=== PATIENT | female | born 1965 | race Caucasian/White ===

== ENCOUNTER 2019-07-31 09:47 | Outpatient (CLI) | payer BC, SELFPAY ==
--- NOTE | ~2019-07-31 | CT_ITS ---
EXAMINATION: CT lung screening EXAM DATE: 07/31/2019 10:14 INDICATION: Personal history of nicotine dependence. TECHNIQUE: Spiral low dose CT of the chest without contrast. Axial, coronal and sagittal images were reviewed. The dose-length product (DLP) for this examination was 110.38 mGy-cm. The exposure was t ailored according to patient size (auto mA exposure control), and iterative reconstruction (ASIR) was used as additional dose reduction technique. There is no prior study for comparison. FINDINGS: Several 2-3 mm right upper lobe noncalcified nodules. Several right upper lobe calcified n odules. Some scattered linear scarring. Mild emphysema. Tracheobronchial tree is patent. There is no mediastinal, hilar or axillary lymphadenopathy. There are no pleural or pericardial effusions. There is no pneumothorax. Heart normal in size. No evidence of coronary arterial calcification. Ascending aorta measures 4.7 cm. Upper abdomen is unremarkable. There is moderate thoracic spondy losis without osteoblastic or osteolytic lesions identified. IMPRESSION: 1. Lung-RADS category 2S, benign appearance or behavior (<1% chance of malignancy); recommend contin ued LDCT screening in 1 year. 2. Ascending aortic 4.7 cm aneurysm. Reviewed, dictated and finalized at location B. ATOR SPECIALIST COMMUNICATIONS IMPRESSION: 1. Lung-RADS category 2S, benign appearance or behavior (<1% chance of maligna ncy); recommend continued LDCT screening in 1 year. 2. Ascending aortic 4.7 cm aneurysm.
--- NOTE | ~2019-07-31 | DEXA_ITS ---
BMD(1) Young-Adult(2) Age-Matched(3) Region (g/cm2) T-score Z-score WHO Classification L1 1.220 0.7 1.4 Normal L2 1.264 0.5 1.2 Normal L3 1.467 2.0 2.7 Normal L4 1.418 1.6 2.3 Normal L1-L4 1.355 1.3 2.0 Normal Trend: L1-L4 Change vs Change vs Measured Age BMD(1) Baseline Previous Date (years) (g/cm2) (%) (%) 07/31/2019 [age] 1.355 baseline - 1 - Statistically 68% of repeat scans fall within 1SD (+- 0.010 g/cm2 for AP Spine L1-L4) 2 - [place] (Combined NHANES (ages 20-30) / [employer] (ages 20-40)) AP Spine Reference Population (v112) 3 - Matched for Age, Weight (females 25-100 kg), Ethnic 11 - World Health Organization - Definition of Osteoporosis and Osteopenia for Women: Normal = T-score at or above -1.0 SD; Osteopenia = T-score between -1.0 and -2.5 SD; Osteoporosis = T-score at or below -2.5 SD; (WHO definitions only apply when a young healthy Women reference database is used to determine T-scores.) Printed: 07/31/2019 10:28:28 AM (13.60)76:3.00:50.00:12.0 0.00:11.28 0.60x1.05 24.2:%Fat=42.2% 0.00:0.00 0.00:0.00 Filename: [id number] Scan Mode: Standard;OneScan 37.0 RocketOz [id number] Dear Marialuisa Archuleta, Your patient Kylah Knight completed a BMD test on 07/31/2019 using the [employer] DXA System (analysis version: 13.60) manufactured by [employer]. The following summarizes the results of our evaluation. PATIENT BIOGRAPHICAL: Name: Kylah Knight Date: 1965 Height: 58.0 in. Gender: Female Exam Date: 07/31/2019 Weight: 150.0 lbs. Indications: Back Pain, Caffeinated drinks, , Hip Pain, Tobacco User Fractures: Treatments: ASSESSMENT: The BMD measured at AP Spine L1-L4 is 1.355 g/cm2 with a T-score of 1.3. This patient is considered normal according to World Health Organization (WHO) criteria. Fracture risk is low. Site Region Measured Measured WHO Young Adult Young Adult BMD Date Age Classification T-score AM Z-score AP Spine L1-L4 07/31/2019 54.1 Normal 1.3 2.0 1.355 g/cm2 World Health Organization (WHO) criteria for post-menopausal, Women: Normal: T-score at or above -1 SD Osteopenia: T-score between -1 and -2.5 SD Osteoporosis: T-score at or below -2.5 SD RECOMMENDATIONS: All patients should ensure an adequate intake of dietary calcium (1200 mg/d) and vitamin D (400-800 IU daily). FOLLOW-UP: People with diagnosed cases of osteoporosis or at high risk for fracture should have regular bone mineral density tests. For patients eligible for Medicare, routine testing is allowed once every 2 years. The testing frequency can be increased to one year for patients who have rapidly progressing disease, those who are receiving or discontinuing medical therapy to restore bone mass, or have additional risk factors. Based on these results, a follow-up exam is recommended in July 2021. Sincerely, Dr. Sky Sigala Reviewed, dictated and finalized at location A. [facility]
== END 2019-07-31 09:48 | disposition home or self-care (01) ==
LOC: CHSIMG 09:54
PROVIDERS: PCP Internal Medicine; Visit Provider Nurse Practitioner Family
DX: Z78.0 Asymptomatic menopausal state (principal); Z12.2 Encounter for screening for malignant neoplasm of respiratory organs; Z87.891 Personal history of nicotine dependence
CPT/HCPCS: 77080; G0297

== ENCOUNTER 2020-01-19 10:22 | Outpatient (CLI) | payer BC, SELFPAY ==
[2020-01-19 10:36] LABS: Add Urine Microscopic? NO; Appearance Urine Clear (Clear); Basophils Absolute Auto 0.03 K/mm3 (0.00-0.10); Basophils Percent Auto 0.7 % (0.0-1.0); Bilirubin Urine Negative (Negative); Blood Urine Negative (Negative); Color Urine Yellow (Yellow); Eosinophils Absolute Auto 0.19 K/mm3 (0.02-0.50); Eosinophils Percent Auto 4.3 % (1.0-6.0); Glucose Urine UA Negative (Negative); Hematocrit 45.1 % (35.0-49.0); Hemoglobin 14.9 g/dL (12.0-15.0); Immature Granulocyte Absolute 0.02 K/mm3 (0.00-0.00); Immature Granulocyte Percent A 0.4 % (0.0-0.0); Ketones Urine Negative (Negative); Leukocyte Esterase Ur Negative LEU/UL (Negative); Lymphocytes Absolute Auto 1.35 K/mm3 (1.10-4.50); Lymphocytes Percent Auto 30.3 % (18.0-42.0); Mean Corpuscular Hemoglobin 30.3 pg (27.0-31.0); Mean Corpuscular Volume 91.9 fL (78.0-102.0); Mean Platelet Volume 10.1 fl (9.2-11.8); Monocytes Absolute Auto 0.74 K/mm3 (0.10-0.90); Monocytes Percent Auto 16.6 % (2.0-11.0); Neutrophils Absolute Auto 2.1 K/mm3 (1.7-7.2); Neutrophils Percent Auto 47.7 % (50.0-70.0); Nitrate Urine Negative (Negative); Platelet Count Result 208 K/mm3 (150-420); Protein Urine Negative (Negative); Red Blood Count 4.91 M/mm3 (4.20-5.40); Red Cell Distribution Width 11.6 % (11.6-14.4); Specific Grav Ur <= 1.005 (1.010-1.020); Urobilinogen Urine 0.2 mg/dL (0.2-1.0); White Blood Count 4.5 K/mm3 (4.8-10.8)
== END 2020-01-19 10:23 | disposition home or self-care (01) ==
LOC: CHSLAB 10:24
PROVIDERS: PCP Internal Medicine; Visit Provider Internal Medicine
DX: N39.0 Urinary tract infection, site not specified (principal); R50.9 Fever, unspecified
CPT/HCPCS: 36415; 81003; 85025

== ENCOUNTER 2020-12-02 16:50 | Emergency (ER) | payer BC, SELFPAY ==
--- NOTE | ~2020-12-02 | XR_ITS ---
EXAMINATION: XR ankle LT 2V DATE: 12/02/2020 17:17 INDICATION: Left ankle pain. Fall. TECHNIQUE: 2 views of left ankle were obtained. COMPARISON: None. FINDINGS: Bone alignment is normal. No fracture. Joint spaces are well maintained. There is an enthes ophyte at posterior aspect of calcaneal tuberosity. IMPRESSION: 1. No fracture. Reviewed, dictated and finalized at location A. IMPRESSION: 1. No fracture.
[2020-12-02 17:02] VITALS: BP 133/79; PULSE 64; RESP 18; TEMP 36.9; O2SAT 96
--- NOTE | 2020-12-02 17:31 | ED.LOWEXIN ---
HPI - Extremity Injury (Lower) General Chief Complaint: Extremity Injury, Lower Stated Complaint: L ankle pain Source: patient and family History of Present Illness HPI Narrative: this is a 55-year-old female that twisted her ankle causing pain and swelling in the lateral aspect of her left ankle has good range of motion although reduced because of swelling and tenderness with no numbness or tingling no bruising. complaint: ankle injury Onset (ago): hour(s) Injury: Left: ankle ( pain with swelling) Type of Injury: inversion Place: home Severity: moderate Severity scale (1-10): 4 Relieving factors: nothing Exacerbating factors: weight bearing and movement Associated symptoms: swelling Related Data Home Medications Medication Instructions Recorded Confirmed No Home Medications 12/02/20 12/02/20 Allergies Allergy/AdvReac Type Severity Reaction Status Date / Time Penicillins Allergy Unknown Verified 08/23/16 08:57 Review of Systems Review of Systems: All systems reviewed & are unremarkable except as noted in HPI and below PMFSH Past Medical History Medical History Patient denies medical problems Social History Social History Smoking status: Smoker, status unknown Alcohol intake: never Exam Const: General: no acute distress and alert Orientation/consciousness: patient oriented x3 Limitations: altered mental status HENMT: Head: normal to inspection Eyes: Pupils: Equal, round and reactive pupils present Neck: Neck: normal visual inspection, no lymphadenopathy and no meningeal signs Chest: Chest palpation & inspection: normal inspection of the chest Resp: Effort & Inspection: normal respiratory effort Cardio: Rate: regular rate Rhythm: regular rhythm GI: GI Palp: Yes Soft to palpation : General: Yes no CVA tenderness Back/Spine/Pelvis: Back: no CVA tenderness Skin: General skin exam: normal color Rashes: no rashes Neuro: General: patient oriented x3 and moves all extremities Extrem: Other: left lateral malleolus swelling and tenderness with palpation Psych: Mental Status: mental status grossly normal Affect: normal affect Course Course Emergency Course: reviewed x-ray with patient will place Ronny wrap and advised to take NSAIDs as needed for pain. Vital Signs Vital signs: Vital Signs Temperature 36.9 C 12/02/20 17:02 Pulse Rate 64 12/02/20 17:02 Respiratory Rate 18 06/03/21 17:02 Blood Pressure 133/79 12/02/20 17:02 Pulse Oximetry 96 12/02/20 17:02 Temperature 36.9 C 12/02/20 17:02 Pulse Rate 64 12/02/20 17:02 Respiratory Rate 18 12/02/20 17:02 Blood Pressure 133/79 12/02/20 17:02 Pulse Oximetry 96 12/02/20 17:02 Critical Care Time Critical Care Time Critical Care Time: No Discharge Plan Discharge Clinical Impression: Ankle sprain and strain Patient Disposition: Home, Self-Care Condition: Stable Instructions: Antibiotic Form, Ankle Sprain (ED) Additional Instructions: continue Ronny wrap, can take Motrin or Aleve as needed for pain and inflammation and follow-up primary care physician if symptoms persist or worsen. Prescriptions: No Action No Home Medications RF: 0 Follow-up/Referrals: Jose Alejandro Boston MD [Primary Care Provider] - Time of Disposition: 17:34
== END 2020-12-02 17:50 | disposition home or self-care (01) ==
PROVIDERS: Emergency Provider Emergency Medicine; PCP Internal Medicine
DX: S93.402A Sprain of unspecified ligament of left ankle, initial encounter (principal); X50.1XXA Overexertion from prolonged static or awkward postures, initial encounter
CPT/HCPCS: 73600; 99282; 99283

== ENCOUNTER 2020-12-16 17:19 | Outpatient (CLI) | payer BC, SELFPAY ==
--- NOTE | ~2020-12-16 | XR_ITS ---
XR ankle LT min 3V DATE: 12/16/2020 17:47 INDICATION: Left lateral ankle pain TECHNIQUE: 4 views COMPARISON: 12/02/2020 left ankle FINDINGS: There is generalized soft tissue swelling of the ankle. No fracture or dislocation of the ankle or disruption of the ankle mortise. No periosteal reaction or bone destruction. Posterior calcaneal enthesopathy. IMPRESSION: Soft tissue swelling Posterior calcaneal enthesopathy Reviewed, dictated and finalized at location A.
== END 2020-12-16 17:20 | disposition home or self-care (01) ==
LOC: CHSIMG 17:21
PROVIDERS: PCP Internal Medicine; Visit Provider Internal Medicine
DX: M25.572 Pain in left ankle and joints of left foot (principal)
CPT/HCPCS: 73610

== ENCOUNTER 2021-04-18 11:15 | Outpatient (CLI) | payer BC, SELFPAY ==
--- NOTE | ~2021-04-18 | XR_ITS ---
EXAMINATION: XR chest 2V 04/18/2021 16:45 INDICATION: Chest pain PROCEDURE: 2 view chest COMPARISON: No prior studies for comparison. FINDINGS: The lungs are clear. The cardiomediastinal silhouette is within normal limits. There are no pleural effusions. There is no pneumothorax suspected. IMPRESSION: 1: NO ACUTE CARDIOPULMONARY DISEASE. Reviewed, dictated and finalized at location B.
[2021-04-18 12:48] LABS: SARS-CoV-2 RNA PCR Negative (Negative)
== END 2021-04-18 11:16 | disposition home or self-care (01) ==
PROVIDERS: PCP Internal Medicine; Visit Provider Internal Medicine
DX: R10.11 Right upper quadrant pain (principal); R10.13 Epigastric pain; I71.9 Aortic aneurysm of unspecified site, without rupture; J06.9 Acute upper respiratory infection, unspecified; Z20.822 Contact with and (suspected) exposure to COVID-19
CPT/HCPCS: 71046; C9803; U0003; U0005

== ENCOUNTER 2021-04-26 09:00 | Outpatient (CLI) | payer BC, SELFPAY ==
--- NOTE | ~2021-04-26 | US_ITS ---
EXAMINATION: US right upper quadrant EXAM DATE: 04/26/2021 09:29 INDICATION: RUQ, Epigastric Pain . TECHNIQUE: Multiple grayscale and Doppler images of the abdomen right upper quadrant were obtained (b y a technologist who performed the scan) and subsequently reviewed. There is no prior study for micky shah. FINDINGS: The pancreatic head and body are normal in appearance. The pancreatic tail is not visualized. The l iver has normal echogenicity and contour. There are no focal liver lesions identified. There is no evidence of intrahepatic biliary duct dilation. Portal venous flow was seen in the hepatopedal, nor mal direction and has normal Doppler waveform. No right-sided hydronephrosis. Common bile duct measures 4 mm, which is normal. The gallbladder wall is normal in thickness, with ex pected amount of distention. No sonographic evidence of pericholecystic fluid. There is no cholelit hiases. Technologist performing exam reports patient did not demonstrate sonographic Nieves's sign. Please note that this sign is less reliable in patients who have received pain medication. IMPRESSION: 1. Unremarkable abdominal ultrasound exam. Reviewed, dictated and finalized at location B.
== END 2021-04-26 09:01 | disposition home or self-care (01) ==
LOC: CHSIMG 09:01
PROVIDERS: PCP Internal Medicine; Visit Provider Internal Medicine
DX: R10.11 Right upper quadrant pain (principal); R10.13 Epigastric pain; I71.9 Aortic aneurysm of unspecified site, without rupture
CPT/HCPCS: 76705

== ENCOUNTER 2022-03-29 13:44 | Outpatient (CLI) | payer BC, SELFPAY ==
--- NOTE | ~2022-03-29 | MM_ITS ---
EXAMINATION: MM screening [facility] BI w charles HISTORY: Screening mammogram TECHNIQUE: Craniocaudal and mediolateral oblique 3-D tomosynthesis images were obtained and synthetic 2-D images were generated. CAD analysis was submitted and interpreted. COMPARISON: No prior mammogram is available for comparison at this institution. BREAST PARENCHYMAL COMPOSITION: There are scattered areas of fibroglandular density. FINDINGS: There is a 3.7 mm circular circumscribed opacity situated anteriorly in the lower inner kenya drant of the right breast. Comparison with any prior mammogram would be helpful to determine whether not this is stable for 2 or more years. If prior mammograms are not available, then diagnostic right mammogram and right breast ultrasound examination are recommended. There is an approximately 1.5 cm circumscribed low-density mass of the mid to upper inner left breast , with a biopsy marker. There is a history of prior benign left breast biopsy. There is a biopsy marker in the left breast in some fatty tissue more anteriorly. No suspicious mass, architectural distortion, malignant calcification, skin thickening or retraction is noted otherwise. There is no evidence of suspicious mass, calcification, or architectural distorti on to suggest malignancy in either breast. There has been no suspicious interval change. IMPRESSION: 1. 3.7 mm mass in anterior lower inner right breast; comparison with any prior available mammogram is recommended. If not available, diagnostic right mammogram and right breast ultrasound examination ar e recommended. 2. Recommend routine screening mammography in one year. BI-RADS Category 0: Incomplete: Needs additional imaging evaluation. Reviewed, dictated and finalized at location A. IMPRESSION: 1. 3.7 mm mass in anterior lower inner right breast; comparison with any prior available mammogram is recommended. If not available, diagnostic right mammogra m and right breast ultrasound examination are recommended. 2. Recommend routine screening mammography in one year. BI-RADS Category 0: Incomplete: Needs additional imaging evaluation.
== END 2022-03-29 13:45 | disposition home or self-care (01) ==
LOC: CHSIMG 13:46
PROVIDERS: PCP Internal Medicine; Visit Provider Internal Medicine
DX: Z12.31 Encounter for screening mammogram for malignant neoplasm of breast (principal)
CPT/HCPCS: 77063; 77067

== ENCOUNTER → 2023-02-08 08:50 | Outpatient (CLI) | payer BC, SELFPAY ==
--- NOTE | ~2023-02-08 | US_ITS ---
EXAMINATION: US thyroid DATE: 02/08/2023 09:12 INDICATION: Thyroid nodule. TECHNIQUE: Multiple ultrasound images of the thyroid were obtained. COMPARISON: None. FINDINGS: The right thyroid lobe measures 4.1 x 1.2 x 1.3 cm. The left thyroid lobe measures 3.6 x 1.2 x 1.5 c m. In the right thyroid lobe, there is a 6 mm solid, hypoechoic, wider than tall nodule with ill-def ined margin without echogenic foci (TI-RADS TR4). In the left thyroid lobe, there is a 6 mm solid, hy poechoic, wider than tall nodule with ill-defined margin without echogenic foci (TR4). IMPRESSION: 1. Small thyroid nodules, likely not clinically significant. No follow-up is needed. Reviewed, dictated and finalized at location A. IMPRESSION: 1. Small thyroid nodules, likely not clinically significant. No follow-up is ne eded.
== END ==
PROVIDERS: PCP Internal Medicine Cardiovascular Disease; Visit Provider Internal Medicine
DX: E04.1 Nontoxic single thyroid nodule (principal)
CPT/HCPCS: 76536

== ENCOUNTER 2023-04-11 09:19 | Outpatient (CLI) | payer BC, SELFPAY ==
--- NOTE | 2023-04-11 11:00 | NEURO_ITS ---
Impression: # Complains of numbness of hands. # No Carpal Tunnel Syndrome. # No ulnar neuropathy. # Normal needle/EMG. Nerve Conduction Studies Anti Sensory Summary Table Stim Site NR Peak (ms) P-T Amp (?V) Site1 Site2 Delta-P (ms) Dist (cm) Srinivas (m/s) Left Median Anti Sensory (2-3nd Digit) Wrist 3.3 36.0 Wrist 2-3nd Digit 3.3 14.0 42 Wrist 3.3 45.5 Wrist 2-3nd Digit 3.3 14.0 42 Right Median Anti Sensory (2-3nd Digit) Wrist 3.4 14.6 Wrist 2-3nd Digit 3.4 14.0 41 Wrist 3.3 53.4 Wrist 2-3nd Digit 3.4 14.0 41 Left Radial Anti Sensory (Base 1st Digit) Wrist 1.9 27.3 Wrist Base 1st Digit 1.9 0.0 Right Radial Anti Sensory (Base 1st Digit) Wrist 2.2 22.6 Wrist Base 1st Digit 2.2 0.0 Left Ulnar Anti Sensory (5th Digit) Wrist 2.3 68.5 Wrist 5th Digit 2.3 14.0 61 Right Ulnar Anti Sensory (5th Digit) Wrist 2.4 59.1 Wrist 5th Digit 2.4 14.0 58 Motor Summary Table Stim Site NR Onset (ms) O-P Amp (mV) Site1 Site2 Delta-0 (ms) Dist (cm) Srinivas (m/s) Left Median Motor (Abd Poll Brev) Wrist 3.3 1.6 Elbow Wrist 4.4 25.0 57 Elbow 7.7 2.7 Right Median Motor (Abd Poll Brev) Wrist 3.5 4.3 Elbow Wrist 4.2 24.0 57 Elbow 7.7 2.2 Left Ulnar Motor (Abd Dig Minimi) Wrist 2.3 8.5 A Elbow Wrist 4.5 26.0 58 A Elbow 6.8 6.8 Right Ulnar Motor (Abd Dig Minimi) Wrist 2.4 6.8 A Elbow Wrist 4.2 24.0 57 A Elbow 6.6 5.1 F Wave Studies NR F-Lat (ms) L-R F-Lat (ms) Left Median (Mrkrs) (Abd Poll Brev) 26.05 0.35 Right Median (Mrkrs) (Abd Poll Brev) 25.70 0.35 Left Ulnar (Mrkrs) (Abd Dig Min) 24.93 0.55 Right Ulnar (Mrkrs) (Abd Dig Min) 24.37 0.55 EMG Side Muscle Nerve Root Ins Act Fibs Amp Dur Recrt Comment Right 1stDorInt Ulnar C8-T1 Nml Nml Nml Nml Nml Right Ext Indicis Radial (Post Int) C7-8 Nml Nml Nml Nml Nml Right Ext Digitorum Radial (Post Int) C7-8 Nml Nml Nml Nml Nml Right BrachioRad Radial C5-6 Nml Nml Nml Nml Nml Right PronatorTeres Median C6-7 Nml Nml Nml Nml Nml Right Abd Poll Brev Median C8-T1 Nml Nml Nml Nml Nml Left 1stDorInt Ulnar C8-T1 Nml Nml Nml Nml Nml Left Ext Indicis Radial (Post Int) C7-8 Nml Nml Nml Nml Nml Left Ext Digitorum Radial (Post Int) C7-8 Nml Nml Nml Nml Nml Left BrachioRad Radial C5-6 Nml Nml Nml Nml Nml Left PronatorTeres Median C6-7 Nml Nml Nml Nml Nml Left Abd Poll Brev Median C8-T1 Nml Nml Nml Nml Nml MTDD
== END 2023-04-11 09:20 | disposition home or self-care (01) ==
LOC: ANHNEURO 09:21
PROVIDERS: PCP Internal Medicine; Visit Provider Internal Medicine
DX: G56.03 Carpal tunnel syndrome, bilateral upper limbs (principal)
CPT/HCPCS: 95886; 95911

== ENCOUNTER 2023-04-24 14:36 | Outpatient (CLI) | payer BC, SELFPAY ==
--- NOTE | ~2023-04-24 | US_ITS ---
EXAMINATION:US venous doppler LE BI INDICATION:Bilateral ankle and calf edema TECHNIQUE: Multiple grayscale, color flow and Doppler images of the right and left lower extremity de ep venous systems were obtained and reviewed. COMPARISON:No prior studies for comparison. FINDINGS: The common femoral, superficial femoral and popliteal veins demonstrate normal respiratory variation, augmentation and compressibility. Color flow is also seen within the posterior tibial, pe roneal, greater saphenous and profunda veins. IMPRESSION: 1: No lower extremity deep venous thrombosis. Reviewed, dictated and finalized at location L.
== END 2023-04-24 14:37 | disposition home or self-care (01) ==
LOC: CHSIMG 14:37
PROVIDERS: PCP Internal Medicine; Visit Provider Internal Medicine
DX: R60.9 Edema, unspecified (principal)
CPT/HCPCS: 93970

== ENCOUNTER 2023-05-10 08:49 | Outpatient (CLI) | payer BC, SELFPAY ==
--- NOTE | ~2023-05-10 | XR_ITS ---
Clinical Indication: Preoperative evaluation, sleep apnea PA and lateral views of the chest: Comparison: 09/01/2022 Findings: The lungs are clear, without evidence of focal consolidation or pleural effusion. Cardiome diastinal silhouette is within normal limits. Bones and soft tissues are unremarkable. Impression: Normal chest. Reviewed, dictated and finalized at location . [employer]AL SERVICE TECHNICIAN Impression: Normal chest.
[2023-05-10 09:13] LABS: Hematocrit 41.5 % (35.0-49.0); Hemoglobin 13.8 g/dL (12.0-15.0); Mean Corpuscular HGB Conc 33.3 g/dL (32.0-36.0); Mean Corpuscular Hemoglobin 30.5 pg (27.0-31.0); Mean Corpuscular Volume 91.8 fL (78.0-102.0); Mean Platelet Volume 9.8 fl (9.2-11.8); Platelet Count Result 179 K/mm3 (150-420); Red Blood Count 4.52 M/mm3 (4.20-5.40); Red Cell Distribution Width 11.6 % (11.6-14.4)
--- NOTE | 2023-05-10 09:15 | ECG_ITS ---
Measurements Intervals [place] Rate: 52 P: 60 GA: 127 QRS: -8 QRSD: 101 T: 49 QT: 404 QTc: 377 Interpretive Statements SINUS BRADYCARDIA DELAYED PRECORDIAL R/S TRANSITION BORDERLINE T WAVE ABNORMALITY- ANTERIOR LEADS BORDERLINE ECG NO PREVIOUS ECG AVAILABLE FOR COMPARISON Electronically Signed On 05-10-2023 9:56:30 TAPING FOREMAN by Miugel Rodriguez D.O.
[2023-05-10 09:26] LABS: Hemoglobin A1C 5.3 % (<5.7)
[2023-05-10 09:36] LABS: INR 0.9; Partial Thromboplastin Time 27.3 SEC (23.90-30.70)
[2023-05-10 09:52] LABS: Band Neutrophils Percent 0 % (0-6); Basophils Absolute Manual 0.03 K/mm3 (0-0.1); Basophils Percent Manual 1 % (0-1); Eosinophils Absolute Manual 0.03 K/mm3 (0.02-0.5); Eosinophils Percent Manual 1 % (1-6); Lymphocytes Absolute Manual 1.02 K/mm3 (1.1-4.5); Lymphocytes Percent Manual 34 % (18-44); Metamyelocytes Percent 0 %; Monocytes Absolute Manual 0.27 K/mm3 (0.1-0.90); Monocytes Percent Manual 9 % (3-9); Myelocytes Percent 0 %; Neutrophils Absolute Manual 1.65 K/mm3 (1.7-7.2); Neutrophils Percent Manual 55 % (46-73); Platelet Estimate Adequate (Adequate); Total Cells Counted 100
[2023-05-10 10:08] LABS: Alanine Aminotransferase 28 U/L (14-59); Albumin Level 3.2 g/dL (3.4-5.0); Alkaline Phosphatase 69 U/L (46-116); Anion Gap 8 mmol/L (8-16); Aspartate Amino Transferase 10 U/L (15-37); Bilirubin,Total 0.4 mg/dL (0.00-1.00); Blood Urea Nitrogen 20 mg/dL (7-18); Calcium 8.6 mg/dL (8.5-10.1); Carbon Dioxide 28 mmol/L (21-32); Chloride 106 mmol/L (98-108); Cholesterol 167 mg/dL (0-200); Estimated Glomerular Filt Rate > 60; Ferritin 86 ng/mL (8-252); Folic Acid 18.3 ng/mL (8.6->20); Glucose 88 mg/dL (70-99); HDL Direct 54 mg/dL (40-60); Iron 92 ug/dL (50-170); LDL Cholesterol Calculated 97 mg/dL (<130); Magnesium 2.2 mg/dL (1.8-2.4); Osmolality Calculated 295 mOsm/kg (285-295); Potassium 4.5 mmol/L (3.5-5.1); Sodium 142 mmol/L (136-145); Thyroid Stimulating Hormone 1.31 uIU/mL (0.36-3.74); Total Protein 5.9 g/dL (6.4-8.2); Triglycerides 78 mg/dL (0-150); Vitamin B12 293 pg/mL (193-986)
[2023-05-13 17:52] LABS: Vitamin D 25 Hydroxy 23 ng/mL (30-100)
[2023-05-14 14:23] LABS: Transferrin 246 mg/dL (188-341)
[2023-05-15 21:27] LABS: Parathyroid Intact 82 pg/mL (14-64)
[2023-05-16 11:38] LABS: Vitamin B1 17 nmol/L (8-30)
== END 2023-05-10 08:50 | disposition home or self-care (01) ==
LOC: CHSLAB 08:54
PROVIDERS: PCP Internal Medicine
DX: Z01.818 Encounter for other preprocedural examination (principal); E66.01 Morbid (severe) obesity due to excess calories; Z68.35 Body mass index [BMI] 35.0-35.9, adult; G47.30 Sleep apnea, unspecified; R00.1 Bradycardia, unspecified
CPT/HCPCS: 36415; 71046; 80053; 80061; 80323; 82306; 82607; 82728; 82746; 83036; 83540; 83735; 83970; 84425; 84443; 84466; 85025; 85610; 85730; 93005; G0480

== ENCOUNTER 2023-06-05 07:45 | Outpatient (CLI) | payer BC, SELFPAY ==
[2023-06-05 07:57] LABS: Hematocrit 41.6 % (35.0-49.0); Hemoglobin 14.1 g/dL (12.0-15.0); Mean Corpuscular HGB Conc 33.9 g/dL (32.0-36.0); Mean Corpuscular Hemoglobin 30.7 pg (27.0-31.0); Mean Corpuscular Volume 90.4 fL (78.0-102.0); Mean Platelet Volume 10.5 fl (9.2-11.8); Platelet Count Result 202 K/mm3 (150-420); Red Cell Distribution Width 11.7 % (11.6-14.4); White Blood Count 3.8 K/mm3 (4.8-10.8)
[2023-06-05 08:30] LABS: Band Neutrophils Percent 0 % (0-6); Basophils Absolute Manual 0.03 K/mm3 (0-0.1); Basophils Percent Manual 1 % (0-1); Eosinophils Absolute Manual 0.11 K/mm3 (0.02-0.5); Eosinophils Percent Manual 3 % (1-6); Lymphocytes Absolute Manual 1.14 K/mm3 (1.1-4.5); Lymphocytes Percent Manual 30 % (18-44); Monocytes Absolute Manual 0.53 K/mm3 (0.1-0.90); Monocytes Percent Manual 14 % (3-9); Neutrophils Absolute Manual 1.97 K/mm3 (1.7-7.2); Neutrophils Percent Manual 52 % (46-73); Platelet Estimate Adequate (Adequate); Total Cells Counted 100
== END 2023-06-05 07:46 | disposition home or self-care (01) ==
LOC: CHSLAB 07:46
PROVIDERS: PCP Internal Medicine; Visit Provider Internal Medicine
DX: D72.819 Decreased white blood cell count, unspecified (principal)
CPT/HCPCS: 36415; 85025

== ENCOUNTER 2023-12-11 10:16 | Outpatient (CLI) | payer OTHER, SELFPAY ==
[2023-12-11 10:29] LABS: Basophils Absolute Auto 0.04 K/mm3 (0.00-0.10); Basophils Percent Auto 0.8 % (0.0-1.0); Eosinophils Absolute Auto 0.12 K/mm3 (0.02-0.50); Eosinophils Percent Auto 2.5 % (1.0-6.0); Hematocrit 41.7 % (35.0-49.0); Hemoglobin 13.7 g/dL (12.0-15.0); Immature Granulocyte Absolute 0.04 K/mm3 (0.00-0.00); Immature Granulocyte Percent A 0.8 % (0.0-0.0); Lymphocytes Absolute Auto 1.05 K/mm3 (1.10-4.50); Lymphocytes Percent Auto 21.7 % (18.0-42.0); Mean Corpuscular HGB Conc 32.9 g/dL (32-36); Mean Corpuscular Hemoglobin 29.8 pg (27.0-31.0); Mean Corpuscular Volume 90.7 fL (78.0-102.0); Monocytes Absolute Auto 0.58 K/mm3 (0.10-0.90); Neutrophils Percent Auto 62.2 % (50.0-70.0); Platelet Count Result 187 K/mm3 (150-420); Red Cell Distribution Width 11.5 % (11.6-14.4); White Blood Count 4.8 K/mm3 (4.8-10.8)
[2023-12-12 15:13] LABS: Parathyroid Intact 53 pg/mL (16-77)
== END 2023-12-11 10:17 | disposition home or self-care (01) ==
LOC: CHSLAB 10:18
PROVIDERS: PCP Internal Medicine; Visit Provider Internal Medicine
DX: E21.3 Hyperparathyroidism, unspecified (principal); D70.9 Neutropenia, unspecified
CPT/HCPCS: 36415; 83970; 85025

== ENCOUNTER 2023-12-14 06:57 | Outpatient (CLI) | payer OTHER, SELFPAY ==
--- NOTE | ~2023-12-14 | MM_ITS ---
EXAMINATION: MM screening [facility] BI w charles HISTORY: Screening TECHNIQUE: Craniocaudal and mediolateral oblique 3-D tomosynthesis images were obtained and synthetic 2-D images were generated. CAD analysis was submitted and interpreted. COMPARISON: No prior mammogram is available for comparison at this institution. BREAST PARENCHYMAL COMPOSITION: Not dense: There are scattered areas of fibroglandular density. FINDINGS: Stable mass upper inner quadrant of the left breast at midposterior depth containing a tiss ue marker, consistent with previous biopsy proven benign fibroadenoma. There is a small mass in the l ower inner quadrant of the right breast anteriorly which is not significantly changed from prior exam ination and not well visualized on MLO view. Recommend directed right breast ultrasound for further a ssessment. There are no suspicious calcifications or architectural distortion. IMPRESSION: 1. Small right breast mass lower inner quadrant anteriorly. 2. Targeted right breast ultrasound recommended. BI-RADS Category 0: Incomplete: Needs additional imaging evaluation. Reviewed, dictated and finalized at location B.
[2023-12-14 07:12] LABS: Appearance Urine Clear (Clear); Bilirubin Urine Negative (Negative); Blood Urine Negative (Negative); Color Urine Light Yellow (Yellow); Glucose Urine UA Negative (Negative); Ketones Urine Negative (Negative); Leukocyte Esterase Ur Trace LEU/UL (Negative); Nitrate Urine Negative (Negative); Protein Urine Negative (Negative); Urobilinogen Urine 0.2 mg/dL (0.2-1.0); pH Urine 5.5 (5.0-8.0)
[2023-12-14 07:26] LABS: Add Urine Microscopic? YES; Bacteria Urine Rare /hpf; RBC Urine None seen /hpf (0-2); Squamous Epithelial Cell Urine Few /hpf (Few); WBC Urine None seen /hpf (0-3)
[2023-12-14 07:54] LABS: Alanine Aminotransferase 30 U/L (14-59); Albumin Level 3.5 g/dL (3.4-5.0); Alkaline Phosphatase 69 U/L (46-116); Anion Gap 8 mmol/L (4-12); Aspartate Amino Transferase 23 U/L (15-37); Bilirubin,Total 0.5 mg/dL (0.00-1.00); Blood Urea Nitrogen 21 mg/dL (7-18); Calcium 8.7 mg/dL (8.5-10.1); Carbon Dioxide 27 mmol/L (21-32); Chloride 104 mmol/L (98-108); Cholesterol 184 mg/dL (0-200); Estimated Glomerular Filt Rate 43; Free T3 2.66 pg/mL (2.18-3.98); Free T4 Free Thyroxine 1.04 ng/dL (0.76-1.46); Glucose 88 mg/dL (70-99); HDL Direct 53 mg/dL (40-60); LDL Cholesterol Calculated 111 mg/dL (<130); Osmolality Calculated 290 mOsm/kg (285-295); Potassium 4.9 mmol/L (3.5-5.1); Sodium 139 mmol/L (136-145); Thyroid Stimulating Hormone 3.02 uIU/mL (0.36-3.74); Total Protein 6.5 g/dL (6.4-8.2); Triglycerides 100 mg/dL (0-150)
[2023-12-15 12:34] LABS: Parathyroid Intact 91 pg/mL (16-77)
[2023-12-16 02:44] LABS: Vitamin D 25 Hydroxy 29 ng/mL (30-100)
== END 2023-12-14 06:58 | disposition home or self-care (01) ==
LOC: CHSIMG 06:57
PROVIDERS: PCP Internal Medicine; Visit Provider Internal Medicine
DX: Z12.31 Encounter for screening mammogram for malignant neoplasm of breast (principal); E03.9 Hypothyroidism, unspecified; E55.9 Vitamin D deficiency, unspecified; E21.3 Hyperparathyroidism, unspecified; E78.2 Mixed hyperlipidemia; N39.0 Urinary tract infection, site not specified; R92.8 Other abnormal and inconclusive findings on diagnostic imaging of breast
CPT/HCPCS: 36415; 77063; 77067; 80053; 80061; 81001; 82306; 83970; 84439; 84443; 84481

== ENCOUNTER 2023-12-20 08:52 | Outpatient (CLI) | payer OTHER, SELFPAY ==
--- NOTE | ~2023-12-20 | MMUS_ITS ---
EXAMINATION: MM diagnostic júnior RT w charles, US breast RT limited HISTORY: Follow-up right breast mass. TECHNIQUE: Additional 3-D tomosynthesis images of the right breast were performed and synthetic 2-D i mages were generated. CAD analysis was submitted and interpreted. High resolution Limited right breas t ultrasound was performed. COMPARISON: 12/14/2023 BREAST PARENCHYMAL COMPOSITION: Not dense: There are scattered areas of fibroglandular density. FINDINGS: MAMMOGRAPHIC FINDINGS: There is a small mass located medially in the right breast near the nipple. There are no suspicious c alcifications or architectural distortion. ULTRASOUND: Limited right breast ultrasound: At 3:00 near the areola there is a 5 mm simple cyst corresponding to the mammographic finding. No suspicious masses to suggest malignancy. IMPRESSION: 1. No evidence for malignancy in the right breast. Benign finding. 2. Routine yearly screening mammogram and regular clinical breast examination are recommended. BI-RADS Category 2: Benign finding(s). Reviewed, dictated and finalized at location B. IMPRESSION: 1. No evidence for malignancy in the right breast. Benign finding. 2. Routine yearly screening mammogram and regular clinical breast examination a re recommended. BI-RADS Category 2: Benign finding(s).
== END 2023-12-20 08:53 | disposition home or self-care (01) ==
PROVIDERS: PCP Internal Medicine; Visit Provider Internal Medicine
DX: R92.8 Other abnormal and inconclusive findings on diagnostic imaging of breast (principal)
CPT/HCPCS: 76642; 77061; 77065; G0279

== ENCOUNTER 2023-12-25 09:23 | Outpatient (RCR) | payer OTHER, SELFPAY ==
--- NOTE | 2023-12-25 10:32 | OPREHPOC ---
Outpatient Therapy Plan of Care This is a Multidisciplinary Plan of Care that may contain components documented by all disciplines (PT, OT, and ST.) PT Problem 1 PT Problem #1 Knowledge Deficit PT Goal 1 Goal 1. independent and compliant with HEP Target Visit 6 PT Problem 2 PT Problem #2 Pain PT Goal 1 Goal 1. patient to report no more than 3/10 pain at worst in the neck and L UE Target Visit 12 PT Problem 3 PT Problem #3 Impaired Strength PT Goal 1 Goal 1. L shoulder strength to be 5/5 overall 2. L elbow strength to be 5/5 overall Target Visit 12 PT Problem 4 PT Problem #4 Impaired Range of Motion PT Goal 1 Goal 1. 70 degrees or better bilateral active cervical rotation 2. 35 degrees or better bilateral active cervical side bending 3. 45 degrees or better bilateral active cervical flex/ext 4. passive L shoulder ER to 90 degrees without pain 5. passive L shoulder flex to end rom without pain Target Visit 12 PT Problem 5 PT Problem #5 Impaired Functional Mobil PT Goal 1 Goal 1. NDI to display 10% or less functional deficits 2. patient to lift, carry, and pull with the L UE without pain/symptoms 3. patient to display no tenderness surrounding the L shoulder Target Visit 12
--- NOTE | 2023-12-25 10:32 | PTOPEVAL1 ---
Assessment and note entered by JT File, PT Evaluation Information Assessment Status Evaluation Diagnosis L cervical radiculopathy C4-C5, L hip pain s/p THR , L shoulder pain Onset 12/17/23 Subjective Information patient reports no injury she can recall. she reports she woke up one morning with a stiff neck. she reports she now has pain behind the L shoulder/neck, and down the back of the L arm. she reports her pain goes down nearly to the elbow along the back of the arm. she reports she reports she has increased pain with movement of L arm. she reports this radiates pain up to the L neck. she reports the L arm feels like it is bruised all the time. 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 she reports she has had no imaging of the cervical spine. she reports she has difficulty performing all motions/activities without pain. she reports mopping, brushing her hair, and sleeping with her arm bent up all are most difficult for her. Reported Pain Level Pain Score 3: Self Report Assessment PT Clinical Summary mrs. lemon is a 58 yo woman who presents to skilled PT services for evaluation and treatment of L neck and L shoulder pain. she also has L hip pain, but the L neck and shoulder were addressed today. will address L hip as treatments progress. she displays inequalities in cervical rom, weakness of the L UE, and pain/tenderness to palpation of the L anterior, lateral, and posterior shoulder. continued skilled PT is indicated to address her cervical and shoulder deficits to achieve a return to her improved functional activity performance/quality of life. Plan of Care Interventions Electrical Stimulation,Hot Pack/Cold Pack,Manual Therapy,Mechanical Traction,Neuro Re-education, Patient/Caregiver Educati,Therapeutic Activities, Therapeutic Exercise,Other Other Interventions dry needling PT Services Indicated Yes Treatment Frequency and 3x weekly for 12 visits Duration These treatments will address the objective and functional deficits as defined above. The patient will be advanced safely and appropriately in order for the patient to progress towards his/her prior level of function. Additional exercises will be introduced and as well as a comprehensive home exercise program upon discharge, if needed, ?to ensure carryover of functional gains achieved in the clinic. This treatment plan has been reviewed and agreement upon by the patient.
--- NOTE | 2023-12-26 14:43 | PCPTNOTE ---
On 12/26/23, the license pending, [Edwige Richardson ], provided care and completed [facility] documentation on this patient. I have reviewed the license pending [employer] PROGRAMMER's documentation and agree with the findings.
--- NOTE | 2023-12-31 15:38 | OPREHPOC ---
Outpatient Therapy Plan of Care This is a Multidisciplinary Plan of Care that may contain components documented by all disciplines (PT, OT, and ST.) PT Problem 1 PT Problem #1 Knowledge Deficit PT Goal 1 Goal 1. independent and compliant with HEP Target Visit 6 PT Problem 2 PT Problem #2 Pain PT Goal 1 Goal 1. patient to report no more than 3/10 pain at worst in the neck and L UE Target Visit 12 PT Problem 3 PT Problem #3 Impaired Strength PT Goal 1 Goal 1. L shoulder strength to be 5/5 overall 2. L elbow strength to be 5/5 overall 3. improve L hip strength to 5/5 overall Target Visit 12 PT Problem 4 PT Problem #4 Impaired Range of Motion PT Goal 1 Goal 1. 70 degrees or better bilateral active cervical rotation 2. 35 degrees or better bilateral active cervical side bending 3. 45 degrees or better bilateral active cervical flex/ext 4. passive L shoulder ER to 90 degrees without pain 5. passive L shoulder flex to end rom without pain Target Visit 12 PT Problem 5 PT Problem #5 Impaired Functional Mobil PT Goal 1 Goal 1. NDI to display 10% or less functional deficits 2. patient to lift, carry, and pull with the L UE without pain/symptoms 3. patient to display no tenderness surrounding the L shoulder 4. patient to report no weakness in the L hip during a full day of standing/walking at home/work . Target Visit 12
--- NOTE | 2023-12-31 15:38 | PTOPPROGNS ---
Assessment and note entered by JT File, PT Evaluation Information Assessment Status Progress Diagnosis L cervical radiculopathy C4-C5, L hip pain s/p THR , L shoulder pain Onset 12/17/23 Subjective Information patient reports the neck and shoulder are feeling better. however, she reports the L hip feels weak still. she reports she is tired today from having worked until late last night, and then working again early this morning. patient reports her L shoulder was giving her some fits earlier today at work, but is better now. she reports she has no pain in the L hip, except for when she is lifting the leg. 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 she was assessed on the L hip today. posture deficits, ambulation deficits, and L hip weakness are noted today. she was educated in exercises for both the neck/shoulder and L hip today to improve her objective/ functional deficits. her goals were updated today to reflect L hip needs. Plan of Care Interventions Electrical Stimulation,Gait Training,Hot Pack/Cold Pack,Manual Therapy,Mechanical Traction,Neuro Re- education,Patient/Caregiver Educati,Therapeutic Activities,Therapeutic Exercise,Other Other Interventions dry needling PT Services Indicated Yes Treatment Frequency and continue skilled PT per established POC with the Duration addition of therapy for the L hip. These treatments will address the objective and functional deficits as defined above. The patient will be advanced safely and appropriately in order for the patient to progress towards his/her prior level of function. Additional exercises will be introduced and as well as a comprehensive home exercise program upon discharge, if needed, ?to ensure carryover of functional gains achieved in the clinic. This treatment plan has been reviewed and agreement upon by the patient.
--- NOTE | 2024-01-01 14:41 | PCPTNOTE ---
Cancelled session today. Reports something came up.
--- NOTE | 2024-01-08 15:08 | PCPTNOTE ---
Patient called & cancelled scheduled appointment this date.
--- NOTE | 2024-01-10 14:09 | PCPTNOTE ---
I reviewed the License Pending Therapist's documentation and agree with the findings.
--- NOTE | 2024-01-14 07:43 | PCPTNOTE ---
I reviewed the License Pending Therapist's documentation and agree with the findings 01/11/24.
--- NOTE | 2024-01-17 07:50 | PCPTNOTE ---
I reviewed the License Pending Therapist's documentation and agree with the findings 01/15/24.
--- NOTE | 2024-01-18 15:36 | PCPTNOTE ---
Patient called & cancelled scheduled appointment this date due to [having to work]
--- NOTE | 2024-01-23 08:42 | OPREHPOC ---
Outpatient Therapy Plan of Care This is a Multidisciplinary Plan of Care that may contain components documented by all disciplines (PT, OT, and ST.) PT Problem 1 PT Problem #1 Knowledge Deficit PT Goal 1 Goal 1. independent and compliant with HEP Target Visit 6 Progress Met PT Problem 2 PT Problem #2 Pain PT Goal 1 Goal 1. patient to report no more than 3/10 pain at worst in the neck and L UE. met 2. patient to report no more than 3/10 pain at worst in the L hip. not met Target Visit 12 Progress Partially Met PT Problem 3 PT Problem #3 Impaired Strength PT Goal 1 Goal 1. L shoulder strength to be 5/5 overall. 2. L elbow strength to be 5/5 overall. met 3. improve L hip strength to 5/5 overall Target Visit 12 Progress Partially Met PT Problem 4 PT Problem #4 Impaired Range of Motion PT Goal 1 Goal 1. 70 degrees or better bilateral active cervical rotation 2. 35 degrees or better bilateral active cervical side bending. 3. 45 degrees or better bilateral active cervical flex/ext. met 4. passive L shoulder ER to 90 degrees without pain 5. passive L shoulder flex to end rom without pain Target Visit 12 Progress Partially Met PT Problem 5 PT Problem #5 Impaired Functional Mobil PT Goal 1 Goal 1. NDI to display 10% or less functional deficits. met 2. patient to lift, carry, and pull with the L UE without pain/symptoms 3. patient to display no tenderness surrounding the L shoulder 4. patient to report no weakness in the L hip during a full day of standing/walking at home/work . Target Visit 12
--- NOTE | 2024-01-23 08:42 | PTOPPROGNS ---
Assessment and note entered by JT File, PT Evaluation Information Assessment Status Progress Diagnosis L cervical radiculopathy C4-C5, L hip pain s/p THR , L shoulder pain Onset 12/17/23 Subjective Information patient reports she feels pretty good today. she reports she has no pain in the neck, shoulder, or L hip. she reports she is not working today. Assessment PT Clinical Summary mrs. lemon presents to skilled PT services for her 10th skilled therapy visit today. she displays progress in shoulder/UE strength, cervical rom, pain reduction, and functional activity performance. she continues to have unmet goals that continued skilled PT with work to address. she will continue with her initial POC for the L shoulder/neck and L hip. focus lately has been towards the L hip as the pain in the neck and shoulder has been reduced. Plan of Care Interventions Electrical Stimulation,Gait Training,Hot Pack/Cold Pack,Manual Therapy,Mechanical Traction,Neuro Re- education,Patient/Caregiver Educati,Therapeutic Activities,Therapeutic Exercise,Other Other Interventions dry needling PT Services Indicated Yes Treatment Frequency and continued skilled PT per initial POC Duration These treatments will address the objective and functional deficits as defined above. The patient will be advanced safely and appropriately in order for the patient to progress towards his/her prior level of function. Additional exercises will be introduced and as well as a comprehensive home exercise program upon discharge, if needed, ?to ensure carryover of functional gains achieved in the clinic. This treatment plan has been reviewed and agreement upon by the patient.
--- NOTE | 2024-02-06 15:28 | OPREHPOC ---
Outpatient Therapy Plan of Care This is a Multidisciplinary Plan of Care that may contain components documented by all disciplines (PT, OT, and ST.) PT Problem 1 PT Problem #1 Knowledge Deficit PT Goal 1 Goal 1. independent and compliant with HEP Target Visit 6 Progress Met PT Problem 2 PT Problem #2 Pain PT Goal 1 Goal 1. patient to report no more than 3/10 pain at worst in the neck and L UE. met 2. patient to report no more than 3/10 pain at worst in the L hip. not met Target Visit 18 Progress Partially Met PT Problem 3 PT Problem #3 Impaired Strength PT Goal 1 Goal 1. L shoulder strength to be 5/5 overall. met 2. L elbow strength to be 5/5 overall. met 3. improve L hip strength to 5/5 overall Target Visit 18 Progress Partially Met PT Problem 4 PT Problem #4 Impaired Range of Motion PT Goal 1 Goal 1. 70 degrees or better bilateral active cervical rotation. met 2. 35 degrees or better bilateral active cervical side bending. met 3. 45 degrees or better bilateral active cervical flex/ext. met 4. passive L shoulder ER to 90 degrees without pain 5. passive L shoulder flex to end rom without pain Target Visit 12 Progress Partially Met PT Problem 5 PT Problem #5 Impaired Functional Mobil PT Goal 1 Goal 1. NDI to display 10% or less functional deficits. met 2. patient to lift, carry, and pull with the L UE without pain/symptoms. met 3. patient to display no tenderness surrounding the L shoulder. met 4. patient to report no weakness in the L hip during a full day of standing/walking at home/work . Target Visit 18 Progress Partially Met
--- NOTE | 2024-02-06 15:29 | PTOPREEVAL ---
Assessment and note entered by JT File, PT Evaluation Information Assessment Status Re-evaluation Diagnosis L cervical radiculopathy C4-C5, L hip pain s/p THR , L shoulder pain Onset 12/17/23 Subjective Information patient reports she feels fine today. she reports she has no pain today. she reports she feels she no longer needs therapy on her neck or shoulder, but does want to continue to strengthen her legs. she reports she has no more lifting, pulling, pushing difficulty with home or work activities. Reported Pain Level Pain Score 0,0,0: Self Report Assessment PT Clinical Summary mrs. lemon presents to skilled PT for her 12th skilled PT visit today. she displays improvements in cervical rom, UE strength, and pain reduction of the neck and shoulder. however. she has met goals for HEP performance, pain, UE strength, and UE function. she continues to have weakness in the L hip and lack of achievement of LE objective and functional goals. she would benefit from continued skilled PT to address remaining objective/functional deficits pertaining to the L hip/core/LE's to improve her quality of life and functional activity performance. Plan of Care Interventions Electrical Stimulation,Gait Training,Hot Pack/Cold Pack,Manual Therapy,Mechanical Traction,Neuro Re- education,Patient/Caregiver Educati,Therapeutic Activities,Therapeutic Exercise,Other Other Interventions dry needling PT Services Indicated Yes Treatment Frequency and continue skilled PT 2x weekly for 6 more visits Duration These treatments will address the objective and functional deficits as defined above. The patient will be advanced safely and appropriately in order for the patient to progress towards his/her prior level of function. Additional exercises will be introduced and as well as a comprehensive home exercise program upon discharge, if needed, ?to ensure carryover of functional gains achieved in the clinic. This treatment plan has been reviewed and agreement upon by the patient.
--- NOTE | 2024-02-08 17:33 | PCPTNOTE ---
I reviewed the License Pending Therapist's documentation and agree with the findings.
--- NOTE | 2024-02-18 14:54 | PCPTNOTE ---
Patient called & cancelled scheduled appointment this date due to [illness ]
== END 2024-03-24 23:59 | disposition home or self-care (01) ==
LOC: CHSPT 09:23
PROVIDERS: PCP Internal Medicine; Visit Provider Internal Medicine
DX: Z47.1 Aftercare following joint replacement surgery (principal); M54.12 Radiculopathy, cervical region; M25.512 Pain in left shoulder; M25.552 Pain in left hip; Z96.642 Presence of left artificial hip joint
CPT/HCPCS: 97014; 97110; 97140; 97161; 97530; G0283

== ENCOUNTER 2024-04-05 20:13 | Emergency (ER) | payer OTHER, SELFPAY ==
[2024-04-05 20:20] VITALS: BP 161/102; PULSE 84; RESP 20; TEMP 36.8; O2SAT 96
[2024-04-05 21:20] LABS: SARS-CoV-2 RNA PCR Negative (Negative)
[2024-04-05 21:25] LABS: Influenza A QL RT-PCR Negative (Negative); Influenza B QL RT-PCR Negative (Negative); RSV RNA, RT-PCR Negative (Negative)
[2024-04-05 21:26] LABS: Strep Group A RT-PCR NOT DETECTED (Negative)
--- NOTE | 2024-04-05 21:26 | ED.URI ---
HPI - URI/Sore Throat General Chief Complaint: Upper Respiratory Infection Stated Complaint: Sore Throat/Cough Time Seen by Provider: 04/05/24 20:29 Source: patient Mode of arrival: ambulatory Limitations: no limitations History of Present Illness HPI Narrative: this is a 58-year-old female presents with a 3 day history of sore throat with nasal congestion postnasal drip sinus pressure with no fever chills no shortness of breath no audible wheezing. MD elicited complaint: cough, sore throat and nasal congestion Onset (ago): day(s) Consistency: constant Description of mucous: clear Exacerbating factors: nothing Relieving factors: nothing Related Data Allergies Allergy/AdvReac Type Severity Reaction Status Date / Time Penicillins Allergy Unknown Unknown Verified 09/01/22 09:20 Review of Systems Review of Systems: All systems reviewed & are unremarkable except as noted in HPI and below PMFSH Past Medical History Medical History Patient denies medical problems Social History Social History Smoking status: Smoker, status unknown Alcohol intake: never Exam Const: General: healthy appearing, no acute distress and alert Nutritional Appearance: well nourished Limitations: no limitations HENMT: Other: Frontal maxillary sinus tenderness with palpation with bilateral tympanic dullness with inflamed nasal turbinates with postnasal drip Eyes: Conjunctivae: conjunctivae normal Pupils: Equal, round and reactive pupils present Chest: Chest palpation & inspection: normal inspection of the chest Resp: Effort & Inspection: normal respiratory effort Auscultation: clear to auscultation bilaterally Cardio: Rate: regular rate Rhythm: regular rhythm GI: GI Palp: Yes Soft to palpation Auscultation: normal bowel sounds Skin: General skin exam: normal color Rashes: no rashes Wounds: no wounds Neuro: General: patient oriented x3 and moves all extremities Course Course Emergency Course: COVID RSV influenza and strep all negative, will treat for sinus infection and give a dose of Zithromax p.o.. Vital Signs Vital signs: Vital Signs Temperature 36.8 C 04/05/24 20:20 Pulse Rate 84 04/05/24 20:20 Respiratory Rate 20 04/05/24 20:20 Blood Pressure 161/102 H 04/05/24 20:20 Pulse Oximetry 96 04/05/24 20:20 Oxygen Delivery Room Air 04/05/24 20:20 Temperature 36.8 C 04/05/24 20:20 Pulse Rate 84 04/05/24 20:20 Respiratory Rate 20 04/05/24 20:20 Blood Pressure 161/102 H 04/05/24 20:20 Pulse Oximetry 96 04/05/24 20:20 Oxygen Delivery Room Air 04/05/24 20:20 MDM - URI/Sore Throat Lab Data Labs: Lab Results 04/05/24 04/05/24 Range/Units 20:20 20:29 Influenza A (RT-PCR) Negative (Negative) Influenza B (RT-PCR) Negative (Negative) RSV (RT-PCR) Negative (Negative) SARS-CoV-2 RNA (RT-PCR) Negative (Negative) Group A Strep (PCR) Not detected (Negative) Critical Care Time Critical Care Time Critical Care Time: No Discharge Plan Discharge Clinical Impression: Sinusitis Qualifiers: Sinusitis location: frontal Chronicity: acute Recurrence: non-recurrent Qualified Code(s): J01.10 - Acute frontal sinusitis, unspecified Patient Disposition: Home, Self-Care Condition: Stable Instructions: Antibiotic Form, Sinusitis (ED) Additional Instructions: Take medication as prescribed, can take Claritin along with some Z-Jamli and follow with primary if symptoms persist or worsen. Prescriptions: New azithromycin [Zithromax Z-Jamil] 250 mg tablet See Rx Instructions .ROUTE .COMPLEX Qty: 6 0RF Rx Instructions: For 250 mg dose pack: take 500 mg today (day 1), then 250 mg for 4 days (days 2-5) Flonase Sensimist 27.5 mcg/actuation spray,suspension 2 spray intranasal DAILY Qty: 5.9 0RF Rx Instructions:
[2024-04-05] MEDS: AZITHROMYCIN 250 MG TABLET 500 MG PO (21:34)
[2024-04-05 21:41] VITALS: BP 151/104; PULSE 85; RESP 18; TEMP 36.6; O2SAT 97
== END 2024-04-05 21:41 | disposition home or self-care (01) ==
PROVIDERS: Emergency Provider Emergency Medicine; PCP Internal Medicine
DX: J01.10 Acute frontal sinusitis, unspecified (principal); Z20.822 Contact with and (suspected) exposure to COVID-19
CPT/HCPCS: 87637; 87651; 99283; A9270

== ENCOUNTER 2024-09-18 08:35 | Outpatient (CLI) | payer OTHER, SELFPAY ==
--- OUTSIDE RECORDS SUMMARY | 2024-09-18 08:52 | XMS_ITS | Clinical Summary ---
Author Organization [facility] Address [address] [place] [id number] Care Team Providers Care Boatbuilder Wood Name Role Phone Jose Alejandro Boston MD Primary Care Provider [phone] Social History Tobacco Use Types Packs/Day Years Used Date Smoking Tobacco: Never Assessed Comments Unknown Sex and Gender Information Value Date Recorded Sex Assigned at Not on file Legal Sex Female 8:33 PM CDT Gender Identity Not on file Sexual Orientation Not on file Plan of Treatment Health Maintenance Due Date Last Done Comments Cervical Cancer Screening Pa p Smear (Age 30 to 64) Every 3 Years 1964 Colorectal Cancer Screening Colonoscopy (10 Years) 1964 Annual Physical 1967 Hepatitis C 1982 DTaP, Tdap and Td Vaccines ( 1 - Tdap) 1983 Cervical Cancer Screening Pa p with HPV Testing (Age 30 to 64) Every 5 Years 1994 Cervical Cancer Screening with HPV 1994 Mammogram Screening 2004 Zoster Vaccines (1 of 2) 2014 COVID-19 Vaccine (2023-2 5 season) 2024 Influenza Adult (#1) 2024 RSV Immunization or 60+ Years (1 - 1-dose 75+ series) 2039 Meningococcal B Vaccine Aged Out No l onger eligible based on patient's age to complete this topic Meningococcal Vaccine Aged Out No aurora minerva eligible based on patient's age to complete this topic Pneumococcal Vaccine: Pediat rics (0 to 5 Years) and At-Risk Patients (6 to 64 Years) Aged Out No longer eligible b ased on patient's age to complete this topic RSV Immunizations Under 20 Months Aged Out No longer eligible based on patient's age to complete this topic Insurance BLUE SHIELD BLUE CROSS BLUE SHIELD Care Teams Boatbuilder Wood Relationship Specialty Start Date End Date Jose Alejandro Boston MD [address] [place] [id number] PCP - General INTERNAL MEDICINE 07/29/19
--- OUTSIDE RECORDS SUMMARY | 2024-09-18 08:52 | XMS_ITS | Clinical Summary ---
Author Organization [facility] Address [address] [place] [address] Care Team Providers Care Journeyman Electrician Name Role Phone Jose Alejandro Boston MD Primary Care Provider [phone] Allergies Active Allergy Reactions Criticality Noted Date Comments Naltrexone-Bupropion Unknown Low 09/06/2020 Penicillins Medications cholecalciferol (VITAMIN D-3) 50,000 unit capsule Take by mouth every 7 days 1 Active omeprazole (PriLOSEC) 40 mg capsule Take 1 capsule (40 mg total) by mouth daily before breakfast 4 Active meloxicam (MOBIC) 7.5 mg tablet Take 1 tablet (7.5 mg total) by mouth daily 45 tablet 5 Active Active Problems Problem Noted Date Diagnosed Date Thyroid nodule 12/22/2022 Overview (05/05/2024): bningn by us Dizziness 10/07/2021 Left anterior fascicular block 10/07/2021 Tricuspid valve insufficiency 10/04/2021 Valvular heart disease 10/04/2021 Bradycardia 09/04/2019 Chronic obstructive pulmonary disease 09/04/2019 Disorder of lung 09/04/2019 Obesity 09/04/2019 Thoracic aortic aneurysm without rupture 020 Vitamin D deficiency 09/04/2019 Arthralgia of hip 12/22/2013 Encounters Date Type Department Care Team Description 08/11/2024 9:10 AM DRAWING IN MACHINE TENDER HELPER Office Visit [facility] Orthopaedic Surgery [address] [place] [address] Manohar Ludwig MD Aftercare following left hip joint replacement surgery (Primary Dx); Left hip pain 06/27/2024 2:00 PM DRAWING IN MACHINE TENDER HELPER Procedure visit [facility] Orthopaedic Surgery [address] [place] [address] [address] [place] [address] Harsha Laughlin MD Left hip pain; Aftercare following left hip joint replacement surgery 06/27/2024 1:35 PM DRAWING IN MACHINE TENDER HELPER Ancillary Procedure [facility] Orthopaedic Surgery [address] [place] [address] [address] [place] [address] Left hip pain from Last 3 Months Immunizations Immunization Administration Dates Next Due Influenza, Quadrivalent, Spl it, Preservative Free, Intramuscular 04/02/2017 Pneumococcal Conjugate PCV 13 06/19/2016 Pneumococcal Polysaccharide PPV23 07/25/2019 Tdap 06/19/2016 ZOSTER Recombinant 08/25/2020,05/04/2020 Surgical History Surgery Date Site/Laterality Comments HIP SURGERY JOINT REPLACEMENT Medical History Medical History Date Comments Obesity Family History Medical History Relation Name Comments Blood Clot Father Family history of blood clots - (Added by TW Conv) Cancer Father Family history of malignant neoplasm - (Added by TW Conv) Diabetes Father Family history of diabetes mellitus - (Added by TW Conv) Hypertension Father Family history of hypertension - (Added by TW Conv) Lung disease Father Lung problems f rom crack cocaine - (Added by TW Conv) Blood Clot Mother Family history of blood clots - (Added by TW Conv) Diabetes Mother Family history of diabetes mellitus - (Added by TW Conv) Hypertension Mother Family history of hypertension - (Added by TW Conv) Lung disease Mother Lung problems f rom crack cocaine - (Added by TW Conv) Relation Name Status Comments Father Mother Social History Tobacco Use Types Packs/Day Years Used Date Smoking Tobacco: Former Cigarettes Smokeless Tobacco: Never Tobacco Cessation:Counseling Given: Not Answered Comments Unknown Sex and Gender Information Value Date Recorded Sex Assigned at Not on file Legal Sex Female 6:25 AM DRAWING IN MACHINE TENDER HELPER Gender Identity Not on file Sexual Orientation Not on file Obstetrics History Last Filed Vital Signs Vital Sign Reading Time Taken Comments Blood Pressure 91/60 07/13/2015 12:33 PM DRAWING IN MACHINE TENDER HELPER Pulse 73 07/13/2015 12:33 PM DRAWING IN MACHINE TENDER HELPER Temperature - - Respiratory Rate - - Oxygen Saturation 94% 07/13/2015 12:33 PM DRAWING IN MACHINE TENDER HELPER Inhaled Oxygen Concentration - - Weight 83.2 kg (183 lb 6.4 oz) 05/05/2024 10:41 AM DRAWING IN MACHINE TENDER HELPER Height 148.6 cm (4' 10.5 ) 05/05/2024 10:41 AM Gabrielle BAILEY Body Mass Index 37.68 05/05/2024 10:41 AM DRAWING IN MACHINE TENDER HELPER Plan of Treatment Health Maintenance Due Date Last Done Comments Breast Cancer Screening-Mammogram 1964 Cervical Cancer Screening 1964 Colon Cancer Screening-Colonoscopy 1964 Depression Screening 1964 Hepatitis C Screening 1964 Hepatitis B Screening 1982 Regular Well Visit/Exam 18-64 1982 Covid-19 Vaccine (2 - season) 03/02/202411/2021 Influenza Vaccine (#1) 2024 04/02/2017 Pneumococcal vaccine <65 (3 of 3 - PCV20 or PCV21) 07/25/2024 07/25/2019, 06/19/2016 DTaP/Tdap/Td Vaccine (2 - Td or Tdap) 06/19/2026 Zoster Vaccine Completed 08/25/2020, 05/04/2020 Procedures Procedure Name Priority Date/Time Associated Diagnosis Comments CHG US GUIDANCE NEEDLE PLACEMENT IMG S&I Routine 06/27/2024 2:00 PM DRAWING IN MACHINE TENDER HELPER Left hip pain Aftercare following left hip joint replacement surgery DC INJECTION 1 TENDON SHEATH/LIGAMENT APONEUROSIS Routine 06/27/2024 2:00 PM DRAWING IN MACHINE TENDER HELPER Left hip pain Aftercare following left hip joint replacement surgery POCUS ASP/INJ MAJOR JOINT Schedule Routine, Read Routine (OP Routine) 06/27/2024 1:32 PM DRAWING IN MACHINE TENDER HELPER Left hip pain from Last 3 Months Results * DC INJECTION 1 TENDON SHEATH/LIGAMENT APONEUROSIS, CHG US GUIDANCE NEEDLE PLACEMENT IMG S&I (06/27/2024 2:00 PM DRAWING IN MACHINE TENDER HELPER) Narrative Harsha Laughlin MD - 06/27/2024 2:00 PM DRAWING IN MACHINE TENDER HELPER Harsha Laughlin MD 06/27/2024 4:17 PM Iliopsoas tendon injection w/ Ultrasound Guidance Performed by: Harsha Laughlin MD Authorized by: Manohar Ludwig MD Iliopsoas Tendon Injection: Consent Given by: Patient Procedure Details: Site: Left Iliopsoas Tendon Needle Size: 25 G Ultrasound guidance: Yes Injection with ultrasound guidance. The iliopsoas tendon was identified in the anterior hip using the ultrasound. The area was cleaned and prepped in sterile fashion. Sterile ultrasound probe cover and sterile ultrasound gel were used. Medications: 2 mL lidocaine 10 mg/mL (1 %); 2 mL BUPivacaine HCl 0.25 % (2.5 mg/mL); 40 mg triamcinolone 40 mg/mL us Manohar Ludwig MD IN CLINIC/BEDSIDE ORDERABLES Final Result * POCUS ASP/INJ MAJOR JOINT (06/27/2024 1:32 PM DRAWING IN MACHINE TENDER HELPER) Narrative [facility] - 06/27/2024 1:32 PM DRAWING IN MACHINE TENDER HELPER This procedure was performed and interpreted by the provider. Please refer to the provider's procedure/OR operative note for results. us Harsha Laughlin MD POCUS ORDERABLES Final Resu lt Performing Organization Address City/State/[facility] Co de Phone Number [facility] from Last 3 Months Insurance [facility] HMO/PPO Address: [facility] [id number] [place] [phone] [facility] HMO/PPO Address: [address] [address] Care Teams Journeyman Electrician Relationship Specialty Start Date End Date Jose Alejandro Boston MD [address] [place] [address] PCP - General 11/20/16
--- OUTSIDE RECORDS SUMMARY | 2024-09-18 08:52 | XMS_ITS | CONTINUITY OF CARE DOCUMENT ---
Author Name myla lanza Address Unknown Organization [facility] Address [address] [place] [address] Phone [phone] Care Team Providers Care Manager Financial Reporting Name Role Phone Arslan Kidd MD Unavailable Arslan Kidd MD Unavailable JULIETA GRIFFIN MD Unavailable PROBLEMS Condition Status Date Provider Notes THYROID nodules active Arslan Kidd MD bni ngn by Valvular heart disease active Arslan Kidd MD Bradycardia;nml tsh;not do to rx active Arslan Kidd MD FAMILY HISTORY OF HEART DISEASE active Arslan Kidd MD Screening active Arslan Kidd MD Vitamin D deficiency active Arslan Torres Tobacco use, quit active Arslan Kidd MD Emphysema active Arslan Kidd MD Granulomatous lung disease active Arslan velaqzuez MD Obesity active Arslan Kidd MD Sleep apnea active Arslan Kidd MD did not want rx HTN borderline active Arslan Kidd MD Chest pain, etiology undefined completed - Arslan Kidd MD Hemiblock, left anterior active Arslan hubbard MD Dizziness completed - Arslan Kidd MD Ascending aortic aneurysm active Arslan nugent MD Cardiovascular screening completed - Arslan Kidd MD ENCOUNTERS Date Type Provider Location Encounter Diag nosis - In-person encounter Office Visit Arslan Kidd MD [facility] Bradycardia;nml tsh;not do to rxChest pain, etiology undefinedHTN borderlineSleep apnea - In-person encounter Office Visit Arslan Kidd MD [facility] Dizziness - In-person encounter Office Visit Arslan Kidd MD [facility] Hemiblock, left anterior - In-person encounter Office Visit Arslan Kidd MD [facility] - In-person encounter Office Visit Arslan Kidd MD [facility] - In-person encounter Office Visit Arslan Kidd MD [facility] Cardiovascular screeningBradycardia;nml tsh;not do to rxFAMILY HISTORY OF HEART DISEASEScreeningAscending aortic aneurysmVitamin D deficiencyTobacco use, quitEmphysemaGranulomatous lung diseaseObesity VITAL SIGNS Date Observation Value Provider Body Mass Index (Ratio) 37.45 kg/m2 Elizabeth Kidd MD blood pressure, diastolic 91 mm[Hg] Judith nkLogic blood pressure, systolic 132 mm[Hg] Jessica kLogic blood pressure, diastolic 91 mm[Hg] Ky renae [place] blood pressure, systolic 132 mm[Hg] Kyl ia [place] oxygen saturation, oximetry 97 % [facility] pulse rate 54 /min [facility] respiratory rate E&M 12 /min Bi jorgensen weight E&M 179.2 [lb_av] [facility] blood pressure, cuff size regular Ky renae [place] height E&M 58 [in_i] [facility] Body Mass Index (Ratio) 33.81 kg/m2 Elizabeth Kidd MD blood pressure, diastolic 97 mm[Hg] Li nkLogic blood pressure, systolic 144 mm[Hg] Jessica kLogic blood pressure, diastolic 97 mm[Hg] Li zbe [place] blood pressure, systolic 144 mm[Hg] Danisha [facility] blood pressure, cuff size regular [facility] pulse rate 56 /min [facility] oxygen saturation, oximetry 97 % [facility] respiratory rate E&M 12 /min [facility] weight E&M 161.8 [lb_av] [facility] height E&M 58 [in_i] [facility] Body Mass Index (Ratio) 32.81 kg/m2 Elizabeth Kidd MD blood pressure, diastolic 80 mm[Hg] Li nkLogic blood pressure, systolic 123 mm[Hg] Jessica kLogic blood pressure, diastolic 80 mm[Hg] Sa ra [place] blood pressure, systolic 123 mm[Hg] Cindy a [place] oxygen saturation, oximetry 95 % Jacey [place] respiratory rate E&M 18 /min Jacey Si ms pulse rate 68 /min Jacey [place] blood pressure, cuff size regular [place] weight E&M 157 [lb_av] J[facility] [place] height E&M 58 [in_i] Jacey [place] Body Mass Index (Ratio) 34.69 kg/m2 Elizabeth Kidd MD blood pressure, diastolic 74 mm[Hg] Anibal [place] blood pressure, systolic 123 mm[Hg] Rho shabnam Charles oxygen saturation, oximetry 98 % Elis Charles pulse rate 60 /min Elis Charles respiratory rate E&M 18 /min Elis Araceli weight E&M 166 [lb_av] Elis Araceli blood pressure, resting No Rhon da Araceli blood pressure, cuff size regular Rh orestes Araceli height E&M 58 [in_i] Elis Charles Body Mass Index (Ratio) 37.41 kg/m2 Elizabeth Kidd MD blood pressure, diastolic 82 mm[Hg] Rh ondanyelle Araceli blood pressure, systolic 122 mm[Hg] Rho ndlori Araceli oxygen saturation, oximetry 98 % Elislori Charles blood pressure, resting No Rhon da Araceli blood pressure, cuff size regular Rh orestes Araceli respiratory rate E&M 18 /min Elis Araceli pulse rate 65 /min Elis Araceli weight E&M 179 [lb_av] Elis Araceli height E&M 58 [in_i] Elis Araceli Body Mass Index (Ratio) 31.97 kg/m2 Elizabeth Kidd MD blood pressure, resting No Tons nickerson Pino respiratory rate E&M 16 /min Tonsha Pino pulse rate 58 /min Tonsha Pino oxygen saturation, oximetry 95 % Tonsha Pino blood pressure, diastolic 79 mm[Hg] To nsha Pino blood pressure, systolic 117 mm[Hg] Ton sha Pino weight E&M 153 [lb_av] Tonsha [place] height E&M 58 [in_i] Tonsha Pino ALLERGIES Allergy Name Onset Date Reaction Criticality Status CONTRAVE Low Criticality active PENICILLIN Low Criticality active REASON FOR REFERRAL Date Service obiest [Description: [facility]] obesity [Description : [facility] -[facility]] RESULTS Date Observation Value Provider Reference Range Interpretation Location 3 microalbumin/cre atinine ratio, urine <23 mg/g LinkLog 1-29 Normal C, [place] [id number] creatinine, random, urine 52.3 mg/dL [place] [address] 3 microalbumin, random, urine <12.0 mg/L [place] [address] HISTORY OF MEDICATION USE Medication Status Instructions Dates Provider Indications Com ments Wegovy 0.25 mg/0.5 mL pen injector active INJECT 1 SYRINGE SUBCUTANEOUSLY ONCE A WEEK Arslan Kidd MD Vitamin D3 50 mcg (2,000 unit) capsule active Take 1 capsule by mouth once a day Arslan Kidd MD OZEMPIC (0.25 OR 0.5 MG/DOSE) 2 MG/1.5ML SUBCUTANEOUS SOLUTION PEN-INJECTOR completed 0.5mg subcutaneously weekly reduces risk of major CV events - Holly Valles NP cholecalciferol (vitamin D3) 1,250 mcg (50,000 unit) capsule completed 1 capsule by mouth once a week - Mich Jimenez NP CONTRAVE 8-90 MG ORAL TABLET EXTENDED RELEASE 12 HOUR completed 1 tab daily x1 week, then 1 tab twice daily x1 week, then 1 tab three times daily x1 week, then two tabs twice daily - Elis Charles CRESTOR 10 MG ORAL TABLET completed ONE TAB. DAILY - Elis Charles VITAMIN D3 1.25 MG (41848 UT) ORAL CAPSULE completed once a week one tab - Elis Charles SOCIAL HISTORY Date Observation Value Provider quit smoking, stage quit Arslan chan MD smoking, date started 1975 Arslan Kidd MD smoking history, tot al pack/year 365 Arslan Kidd MD smoking history, tot al pack/day 1 Arslan Kidd MD cigarette use yes Arslan Kidd MD smoking status Former smoker Arslan sandoval MD social history E&M S moking History: Ok jimenez is a former smoker. Mich Jimenez LABORATORY OPERATIONS COORDINATOR social history reviewed E&M revi ewed - no changes required Mich Boyerri LABORATORY OPERATIONS COORDINATOR cigarette use yes Mich Jimenez LABORATORY OPERATIONS COORDINATOR smoking status Former smoker Mich Boyer ri LABORATORY OPERATIONS COORDINATOR social history reviewed E&M revi ewed - no changes required Juju Gabrielle Alejo LABORATORY OPERATIONS COORDINATOR smoking status Former smoker Elis Araceli cigarette use yes Elis Araceli smoking status Former smoker Elis Araceli social history E&M S moking History: Ok jimenez currently smokes every day. Arslan Kidd MD social history reviewed E&M revi ewed - no changes required Arslan Kidd MD quit smoking, stage quit Arslan chan MD smoking, date started 1975 Tonsha Pino smoking history, tot al pack/year 365 Tonsha Pino smoking history, tot al pack/day 1 Tonsha Pino cigarette use yes Tonsha Pino smoking status Current every day smoker T onsha Pino FAMILY HISTORY Family Member Condition Father Family History Unkno wn Mother Family History of Hy pertension: Mother Family History of Di abetes: Mother Family History of CV A or Stroke: INSURANCE PROVIDERS Payer name Policy type / Coverage type [employer] party ID [place] insurance co [facility] [id number] ADVANCE DIRECTIVES Name Date DISCUSSED - NO DECISION MADE TREATMENT PLAN Date Name Performer [id number],C,4.6 Arslan velazquez MD [id number],C,mod mr and mi ld to mod tr Arslan Kidd MD [id number],C,zero trevin and neg uacr, nml ef Arslan Kidd MD [id number],C,EKG in office today SB, HR 57. Mich Jimenez LABORATORY OPERATIONS COORDINATOR [id number],C,P atient reports off and on left sided sharp chest pain unrelated to activity. Will order stress test. Mich Jimenez LABORATORY OPERATIONS COORDINATOR [id number],C,Echo today mi ld-mod tr Mich Jimenez LABORATORY OPERATIONS COORDINATOR [id number],C,L ast Vit D level 22 (07/2019) She is currently not taking any supplements. Advised paient to take OTC supplements 2000 units daily. Mich Jimenez LABORATORY OPERATIONS COORDINATOR [id number],C,N oted on CT scan (09/2021). Patient denies having any pulmonary symptoms. Will order CT lung. Mich Jimenez LABORATORY OPERATIONS COORDINATOR [id number],C,Quit smoking in 2019. Mich Jimenez LABORATORY OPERATIONS COORDINATOR [id number],C,E cho today 4.4. Repeat Echo in 1 year. Mich Jimenez LABORATORY OPERATIONS COORDINATOR [id number],C, z ero trevin Juju Alejo LABORATORY OPERATIONS COORDINATOR [id number],C,D aily, mostly with position changes. one near syncope episode. H olter monitor Juju Alejo LABORATORY OPERATIONS COORDINATOR [id number],C,CT next year Juju Alejo LABORATORY OPERATIONS COORDINATOR [id number],C,S table 4.7 r epeat next year Juju Alejo LABORATORY OPERATIONS COORDINATOR [id number],C,repeat next y ear Juju Alejo LABORATORY OPERATIONS COORDINATOR [id number],C,D aily, mostly with position changes. one near syncope episode. Juju Alejo LABORATORY OPERATIONS COORDINATOR [id number],C,o n weight watchers has lost 22.5lbs Juju Alejo LABORATORY OPERATIONS COORDINATOR [id number],C,S table 4.7 Juju C [place] LABORATORY OPERATIONS COORDINATOR [id number],C,downt to 4.7 Arslan Kidd MD [id number],C,4.[address] 4.3 by echo Arslan Kidd MD Cardiology Arslan Kidd MD Cardiology Arslan Kidd MD Cardiology Arslan Kidd MD Cardiology: 4 .6 Arslan Kidd MD Cardiology:high crp z ero trevin and neg uacr, nml ef Arslan Kidd MD Cardiology Arslan Kidd MD Cardiology: m od mr and mild to mod tr Arslan Kidd MD Cardiology: Q uit smoking in 2019. Arslan Kidd MD Cardiology Arslan Kidd MD Cardiology Arslan Kidd MD lmom :4.6 Arslan Kidd MD :mod mr and mild to mod tr Darian Kidd MD :zero trevin and neg uacr, nml ef H olman Kidd MD Cardiology-seen [facility] LABORATORY OPERATIONS COORDINATOR:EKG in of fice today SB, HR 57. Mich Jimenez NP Cardiology-seen [facility] LABORATORY OPERATIONS COORDINATOR:Patient reports off and on left sided sharp chest pain unrelated to activity. Will order stress test. Mich Jimenez NP Cardiology-seen [facility] LABORATORY OPERATIONS COORDINATOR:Echo toda y mild-mod tr Mich Jimenez NP Cardiology-seen [facility] LABORATORY OPERATIONS COORDINATOR:Last Vit D level 22 (07/2019) She is currently not taking any supplements. Advised paient to take OTC supplements 2000 units daily. Mich Jimenez NP Cardiology-seen [facility] LABORATORY OPERATIONS COORDINATOR:Noted on CT scan (09/2021). Patient denies having any pulmonary symptoms. Will order CT lung. Mich Jimenez NP Cardiology-seen [facility] LABORATORY OPERATIONS COORDINATOR:Quit smok ing in 2019. Mich Jimenez NP Cardiology-seen [facility] LABORATORY OPERATIONS COORDINATOR:Echo today 4.4. Repeat Echo in 1 year. Mich Jimenez LABORATORY OPERATIONS COORDINATOR Cardiology-seen with LABORATORY OPERATIONS COORDINATOR: yadira zhong Juju Alejo LABORATORY OPERATIONS COORDINATOR Cardiology-seen with LABORATORY OPERATIONS COORDINATOR:Daily, mostly with position changes. one near syncope episode. H olter monitor Juju Alejo LABORATORY OPERATIONS COORDINATOR Cardiology-seen with LABORATORY OPERATIONS COORDINATOR:CT next year Juju Alejo LABORATORY OPERATIONS COORDINATOR Cardiology-seen with LABORATORY OPERATIONS COORDINATOR:Stable 4.7 r epeat next year Juju Alejo LABORATORY OPERATIONS COORDINATOR Cardiology-seen with LABORATORY OPERATIONS COORDINATOR:repeat n ext year Juju Alejo LABORATORY OPERATIONS COORDINATOR Cardiology-seen with LABORATORY OPERATIONS COORDINATOR:Daily, mostly with position changes. one near syncope episode. Juju Alejo LABORATORY OPERATIONS COORDINATOR Cardiology-seen with LABORATORY OPERATIONS COORDINATOR:on weight watchers has lost 22.5lbs Juju Alejo LABORATORY OPERATIONS COORDINATOR Cardiology-seen with LABORATORY OPERATIONS COORDINATOR:Stable 4.7 Juju Alejo LABORATORY OPERATIONS COORDINATOR :downt to 4.7 Arslan Kidd MD robert?:4.[address] 4[address]3 by echo Darian Kidd MD Cardiology:had echoc ardiogram with mild MVR, EF of 60%, and miild TR O rders: 9 9214 MOD 30-39min (CPT-81569) B [facility] (*) C ounseling LDCT (CPT-G0296) L ow Dose Lung CT (CPT-G0297) Holly Valles LABORATORY OPERATIONS COORDINATOR Cardiology:HR in the 60s. asymptomatic O rders: 9 9214 MOD 30-39min (CPT-66836) B [facility]riatric Surgery [facility] (*) Holly Valles LABORATORY OPERATIONS COORDINATOR Cardiology:Had CT ex am and her ascendin Arotic Aneurysm is 4.9cm O rders: 9 9214 MOD 30-39min (CPT-24959) B [facility]atric Surgery [facility] (*) C omplete Echo (CPT-26168) Holly Valles LABORATORY OPERATIONS COORDINATOR Cardiology:Did not t olerate the ozempic because she began having nausea, dizziness. Unable to take the medicaiton. w ill refer to the surgeons at [facility] O rders: 9 9214 MOD 30-39min (CPT-57234) B [facility] (*) C omplete Echo (CPT-83015) Holly Valles LABORATORY OPERATIONS COORDINATOR Cardiology:The patie nt is between 55-77 years old and has smoked at least 30 pack years. The patient is either a current smoker or has quit within the past 15 years. T he patient is recommended to have low dose CT scan for lung cancer screening. Has been counseled regarding the importance of tobacco cessation and abstinence. Shared decision making during this office visit included discussion of the benefits and harms of screening, possible future recommendations of follow-up diagnostic testing, and total amount of radiation exposure. The patient was recommended to have annual low dose CT scan for lung cancer screening and is willing to undergo diagnosis and treatment. Orders: F VC - 34837 (13682) F RC - 39968 (47931) D LCO - 23075 (88740) 9 9214 MOD 30-39min (CPT-93930) C omplete Echo (CPT-97650) C ounseling LDCT (CPT-G0296) L ow Dose Lung CT (CPT-G0297) B [facility] (*) Holly Valles LABORATORY OPERATIONS COORDINATOR Cardiology:She no lo nger takes her vitamin D. last level last year was 22 O rders: F VC - 62633 (06030) F RC - 60996 (26772) D LCO - 14402 (85475) 9 9214 MOD 30-39min (CPT-20419) C omplete Echo (CPT-68020) C ounseling LDCT (CPT-G0296) L ow Dose Lung CT (CPT-G0297) B [facility] (*) Holly Valles LABORATORY OPERATIONS COORDINATOR Cardiology:Patient w ants some help to lose weight. She has tried the contrave and it gave her headaches. O rders: F VC - 51204 (43522) F RC - 10634 (59262) D LCO - 75390 (22027) 9 9214 MOD 30-39min (CPT-59115) C omplete Echo (CPT-39356) C ounseling LDCT (CPT-G0296) L ow Dose Lung CT (CPT-G0297) [facility] (*) Holly Valles LABORATORY OPERATIONS COORDINATOR Cardiology:Patient w ill need to have her aneursym rechecked to determine if any change in size. O rders: F VC - 99378 (37346) F RC - 28369 (69109) D LCO - 04921 (56840) 9 9214 MOD 30-39min (CPT-90573) C omplete Echo (CPT-99852) C ounseling LDCT (CPT-G0296) L ow Dose Lung CT (CPT-G0297) [facility] (*) Holly Valles LABORATORY OPERATIONS COORDINATOR Cardiology:Ekg revei wed today rate 61 , without any rate altering medication O rders: E KG (CPT-07392) Holly Valles LABORATORY OPERATIONS COORDINATOR Cardiology:will rx Arslan Kidd MD Cardiology Arslan Kidd MD Cardiology Arslan Kidd MD Cardiology Arslan Kidd MD Cardiology:4.5 to 4.7 Arslan nugent MD Cardiology:zero trevin Arslan sandoval MD Cardiology Arslan Kidd MD Cardiology:lung scree by primnar yh Arslan Kidd MD Cardiology:mom has sullytkatarina Kidd MD Date Name [facility] RPM (remote patient monitoring) IRON AND TOTAL IRON BINDING CAPACITY FERRITIN CBC (INCLUDES DIFF/P LT) COMPREHENSIVE METABO LIC PANEL, W/EGFR CRP, high sensitivit y Lipoprotein (a) LIPID PANEL HEMOGLOBIN A1c Vitamin D, 25-Hydrox y VITAMIN B12 CT Chest without con trast Complete Echo Stress Routine CT Chest without con trast DLCO - 26816 FRC - 70159 FVC - 78916 Microalb/Creatinine Urine, Random Complete Echo Complete Echo Monitor - Telemetry (Mobile Cardiac) Low Dose Lung CT Complete Echo Low Dose Lung CT Complete Echo Low Dose Lung CT Low Dose Lung CT Complete Echo DLCO - 65568 FRC - 36780 FVC - 10249 Complete Echo DLCO - 80205 FRC - 08813 FVC - 69147 Holter Monitor [address], Coronary Calcium Score HISTORY OF PROCEDURES Procedure Date Procedure Name Provider Procedure Notes S tatus Complex e/m visit add on Arslan Kidd MD completed EKG Arslan Kidd MD complete d EKG Arslan Kidd MD complete d Counseling LDCT Arslan Kidd MD one year com pleted EKG Arslan Kidd MD complete d Counseling LDCT Arslan Kidd MD one year com pleted Counseling LDCT Arslan Kidd MD com pleted EKG Arslan Kidd MD complete d FVC / MVV with bronchodilator - 61420 Arslan Kidd MD completed BLOOD COUNT HEMOGLOBIN Arslan Kidd MD completed FRC - 15777 Arslan Kidd MD complet ed SpO2 w/o 6min walk/titration Arslan Kidd MD completed DLCO - 20889 Arslan Kidd MD comple gonzalo EKG Arslan Kidd MD complete d CT- Coronary CA score Arslan Kidd MD completed
--- OUTSIDE RECORDS SUMMARY | 2024-09-18 08:52 | XMS_ITS | Encounter Summary ---
Author Organization [facility] Address [facility] [place] [address] Care Team Providers Care Chipping Machine Operator Name Role Phone Jose Alejandro Boston MD Primary Care Provider [phone] Encounter Details Date Type Department Care Team (Late st Contact Info) Description 12/07/2018 Abstract SFL CONVERSION [address] [facility] [address] , Generic Conversion, Social History Tobacco Use Types Packs/Day Years Used Date Smoking Tobacco: Never Assessed Comments Unknown Sex and Gender Information Value Date Recorded Sex Assigned at Not on file Legal Sex Female 8:33 PM CDT Gender Identity Not on file Sexual Orientation Not on file documented as of this encounter Plan of Treatment Not on file documented as of this encounter Visit Diagnoses Not on filedocumented in this encounter Care Teams Chipping Machine Operator Relationship Specialty Start Date End Date Jose Alejandro Boston MD [address] [place] [address] PCP - General INTERNAL MEDICINE 07/29/19 documented as of this encounter
--- OUTSIDE RECORDS SUMMARY | 2024-09-18 08:52 | XMS_ITS | Referral Summary ---
Author Organization [facility] Address [address] [place] [address] Care Team Providers Care Zoo Caretaker Name Role Phone Jose Alejandro Boston MD Primary Care Provider Encounters Date Type Department Care Team Description 08/11/2024 9:10 AM EDI PROGRAMMER ANALYST Office Visit [facility] Orthopaedic Surgery [address] [place] [address] Medical Office Building [address] [place] [phone] Manohar Ludwig MD Aftercare following left hip joint replacement surgery (Primary Dx); Left hip pain 06/27/2024 1:35 PM EDI PROGRAMMER ANALYST Ancillary Procedure [facility] Orthopaedic Surgery [address] [place] [address] 2nd Floor [address] [place] [phone] Left hip pain 06/27/2024 2:00 PM EDI PROGRAMMER ANALYST Procedure visit [facility] Orthopaedic Surgery [address] [place] [address] Floor [address] [place] [phone] Harsha Laughlin MD Left hip pain; Aftercare following left hip joint replacement surgery from Last 3 Months Allergies Active Allergy Reactions Criticality Noted Date [...] D deficiency 09/04/2019 Arthralgia of hip 12/22/2013 Immunizations Immunization Administration Dates Next Due Influenza, Quadrivalent, Spl it, Preservative Free, Intramuscular 04/02/2017 Pneumococcal Conjugate PCV 13 06/19/2016 Pneumococcal Polysaccharide PPV23 07/25/2019 Tdap 06/19/2016 ZOSTER Recombinant 08/25/2020,05/04/2020 Social History Tobacco Use Types Packs/Day Years Used Date Smoking Tobacco: Former Cigarettes Smokeless Tobacco: Never Tobacco Cessation:Counseling Given: Not Answered Comments Unknown Sex and Gender Information Value Date Recorded Sex Assigned at Not on file Legal Sex Female 6:25 AM EDI PROGRAMMER ANALYST Gender Identity Not on file Sexual Orientation Not on file Last Filed Vital Signs Vital Sign Reading Time Taken Comments Blood Pressure 91/60 07/13/2015 12:33 PM EDI PROGRAMMER ANALYST Pulse 73 07/13/2015 12:33 PM EDI PROGRAMMER ANALYST Temperature - - Respiratory Rate - - Oxygen Saturation 94% 07/13/2015 12:33 PM EDI PROGRAMMER ANALYST Inhaled Oxygen Concentration - - Weight 83.2 kg (183 lb 6.4 oz) 05/05/2024 10:41 AM EDI PROGRAMMER ANALYST Height 148.6 cm (4' 10.5 ) 05/05/2024 10:[address] Body Mass Index 37.68 05/05/2024 10:41 AM EDI PROGRAMMER ANALYST Plan of Treatment Not on file Procedures Procedure Name Priority Date/Time Associated Diagnosis Comments CHG US GUIDANCE NEEDLE PLACEMENT IMG S&I Routine 06/27/2024 2:00 PM EDI PROGRAMMER ANALYST Left hip pain Aftercare following left hip joint replacement surgery IN INJECTION 1 TENDON SHEATH/LIGAMENT APONEUROSIS Routine 06/27/2024 2:00 PM EDI PROGRAMMER ANALYST Left hip pain Aftercare following left hip joint replacement surgery POCUS ASP/INJ MAJOR JOINT Schedule Routine, Read Routine (OP Routine) 06/27/2024 1:32 PM EDI PROGRAMMER ANALYST Left hip pain from Last 3 Months Results * IN INJECTION 1 TENDON SHEATH/LIGAMENT APONEUROSIS, CHG US GUIDANCE NEEDLE PLACEMENT IMG S&I (06/27/2024 2:00 PM EDI PROGRAMMER ANALYST) Narrative Harsha Laughlin MD - 06/27/2024 2:00 PM EDI PROGRAMMER ANALYST Harsha Laughlin MD 06/27/2024 4:17 PM Iliopsoas [...] POCUS ASP/INJ MAJOR JOINT (06/27/2024 1:32 PM EDI PROGRAMMER ANALYST) Narrative [facility] - 06/27/2024 1:32 PM EDI PROGRAMMER ANALYST This procedure was performed and interpreted by the provider. Please refer to the provider's procedure/OR operative note for results. us Harsha Laughlin MD POCUS ORDERABLES Final Resu lt [facility] from Last 3 Months Insurance [facility] Member Subscriber Plan / Payer (Ef fective 2023-Present) Name:Kylah Knight Charisse Relation to Subscriber:Self Name:Kylah Knight Payer ID:[id number] (NAIC) Type:[facility] H[facility]/PPO Address: [place] [id number] Care Teams Zoo Caretaker Relationship Specialty Start Date End Date Jose Alejandro Boston MD [address] [place], [place] [id number] PCP - General 11/20/16
[2024-09-18 09:00] LABS: Hemoglobin 13.6 g/dL (12.0-15.0); Mean Corpuscular HGB Conc 32.4 g/dL (32-36); Mean Corpuscular Hemoglobin 29.6 pg (27.0-31.0); Mean Corpuscular Volume 91.5 fL (78.0-102.0); Platelet Count Result 175 K/mm3 (150-420); Red Blood Count 4.59 M/mm3 (4.20-5.40); Red Cell Distribution Width 12.1 % (11.6-14.4); White Blood Count 3.2 K/mm3 (4.8-10.8)
[2024-09-18 09:08] LABS: Hemoglobin A1C 5.5 % (<5.7)
[2024-09-18 09:31] LABS: Band Neutrophils Percent 0 % (0-6); Basophils Percent Manual 0 % (0-1); Eosinophils Absolute Manual 0.06 K/mm3 (0.02-0.50); Eosinophils Percent Manual 2 % (1-6); Lymphocytes Absolute Manual 1.08 K/mm3 (1.1-4.5); Lymphocytes Percent Manual 34 % (18-44); Neutrophils Percent Manual 50 % (46-73); Total Cells Counted 100
[2024-09-18 09:32] LABS: Monocytes Absolute Manual 0.44 K/mm3 (0.1-0.90); Monocytes Percent Manual 14 % (3-9); Platelet Estimate Adequate (Adequate)
[2024-09-18 10:26] LABS: Alanine Aminotransferase 23 U/L (14-59); Albumin Level 3.6 g/dL (3.4-5.0); Alkaline Phosphatase 63 U/L (46-116); Anion Gap 7 mmol/L (4-12); Aspartate Amino Transferase 11 U/L (15-37); Bilirubin,Total 0.7 mg/dL (0.00-1.00); Blood Urea Nitrogen 20 mg/dL (7-18); Calcium 9.1 mg/dL (8.5-10.1); Carbon Dioxide 29 mmol/L (21-32); Chloride 107 mmol/L (98-108); Cholesterol 173 mg/dL (0-200); Estimated Glomerular Filt Rate 55; Ferritin 64 ng/mL (8-252); Glucose 70 mg/dL (70-99); HDL Direct 52 mg/dL (40-60); Iron 99 ug/dL (50-170); LDL Cholesterol Calculated 102 mg/dL (<130); Osmolality Calculated 296 mOsm/kg (285-295); Percent Iron Saturation 31 % (12-57); Potassium 4.6 mmol/L (3.5-5.1); Sodium 143 mmol/L (136-145); Total Protein 6.2 g/dL (6.4-8.2); Triglycerides 94 mg/dL (0-150); Vitamin B12 317 pg/mL (193-986)
[2024-09-19 22:18] LABS: CRP, High Sensitivity 2.9 mg/L
[2024-09-20 01:33] LABS: Vitamin D 25 Hydroxy 22 ng/mL (30-100)
[2024-09-20 14:44] LABS: Lipoprotein A 10 nmol/L
== END 2024-09-18 08:36 | disposition home or self-care (01) ==
LOC: CHSLAB 08:42
PROVIDERS: PCP Internal Medicine
DX: E04.1 Nontoxic single thyroid nodule (principal); R07.9 Chest pain, unspecified; I44.4 Left anterior fascicular block; I38 Endocarditis, valve unspecified; E66.9 Obesity, unspecified; L98.0 Pyogenic granuloma; J98.2 Interstitial emphysema; E55.9 Vitamin D deficiency, unspecified; Z87.891 Personal history of nicotine dependence
CPT/HCPCS: 36415; 80053; 80061; 82306; 82607; 82728; 83036; 83540; 83550; 83695; 85025; 86141

== ENCOUNTER 2024-09-26 14:30 | Outpatient (CLI) | payer OTHER, SELFPAY ==
--- NOTE | ~2024-09-26 | CT_ITS ---
CLINICAL INDICATION: Previous history of nicotine dependence COMPARISON: 07/31/2019. TECHNIQUE: Multiple contiguous axial images of the chest was performed without the administration of intravenous contrast. This CT examination was performed utilizing dose reduction techniques. DLP: 241 mGy-cm FINDINGS/OBSERVATIONS: LUNG: The lungs are clear. No pulmonary nodules are identified. HEART: The heart is of normal size, without pericardial effusion. The ascending thoracic aorta measures 4.7 cm, unchanged from prior. MEDIASTINUM: No pathologically enlarged or morphologically suspicious lymph nodes are identified within the medias tinum, bilateral axilla, within the soft tissues of the anterior chest wall. VISUALIZED SOFT TISSUES OF THE CHEST: Unremarkable. BONES OF THE CHEST: No acute fracture. No lytic or blastic lesions are identified. There are bridging endplate osteophytes at multiple levels in the spine, consistent with diffuse idio pathic skeletal hyperostosis (DISH). UPPER ABDOMEN: Small hiatal hernia. The gallbladder is decompressed. Punctate calcifications identified within the splenic parenchyma, suggesting prior granulomatous dise ase. IMPRESSION: Lung-RADS category 1: Negative. Continue annual screening with noncontrast low-dose chest CT in 12 mo nths. Ascending thoracic aortic aneurysm, unchanged in size from prior Reviewed, dictated and finalized at location A. IMPRESSION: Lung-RADS category 1: Negative. Continue annual screening with noncontrast low- dose chest CT in 12 months. Ascending thoracic aortic aneurysm, unchanged in size from prior
--- OUTSIDE RECORDS SUMMARY | 2024-09-26 14:34 | XMS_ITS | Referral Summary ---
Author Organization [facility] Address [address] [place] [address] Care Team Providers Care Supervisor Malt House Name Role Phone Jose Alejandro Boston MD Primary Care Provider Encounters Date Type Department Care Team Description 08/11/2024 9:10 AM ADMINISTRATOR Office Visit [facility] Orthopaedic Surgery [address] [place] [address] Medical Office Building [address] [place] [address] Manohar Ludwig MD Aftercare following left hip joint replacement surgery (Primary Dx); Left hip pain from Last 3 Months Allergies Active Allergy [...] on file Legal Sex Female 6:25 AM ADMINISTRATOR Gender Identity Not on file Sexual Orientation Not on file Last Filed Vital Signs Vital Sign Reading Time Taken Comments Blood Pressure 91/60 07/13/2015 12:33 PM ADMINISTRATOR Pulse 73 07/13/2015 12:33 PM ADMINISTRATOR Temperature - - Respiratory Rate - - Oxygen Saturation 94% 07/13/2015 12:33 PM ADMINISTRATOR Inhaled Oxygen Concentration - - Weight 83.2 kg (183 lb 6.4 oz) 05/05/2024 10:41 AM ADMINISTRATOR Height 148.6 cm (4' 10.5 ) 05/05/2024 10:[address] Body Mass Index 37.68 05/05/2024 10:41 AM ADMINISTRATOR Plan of Treatment Not on file Insurance [facility] HMO/PPO Address: [facility] [address] [place] [address] [facility] HMO/PPO Address: [address] [address] Care Teams Supervisor Malt House Relationship Specialty Start Date End Date Jose Alejandro Boston MD [address] [place] [address] PCP - General 11/20/16
--- OUTSIDE RECORDS SUMMARY | 2024-09-26 14:34 | XMS_ITS | Clinical Summary ---
Author Organization [facility] Address [address] [place] [address] Care Team Providers Care Spinning And Winding Supervisor Name Role Phone Jose Alejandro Boston MD Primary Care Provider [phone] Social History Tobacco Use Types Packs/Day Years [...] SHIELD BLUE CROSS BLUE SHIELD Care Teams Spinning And Winding Supervisor Relationship Specialty Start Date End Date Jose Alejandro Boston MD [address] [place] [id number] PCP - General INTERNAL MEDICINE 07/29/19
--- OUTSIDE RECORDS SUMMARY | 2024-09-26 14:34 | XMS_ITS | Encounter Summary ---
Author Organization [facility] Address [facility] [place] [address] Care Team Providers Care Impersonator Character Name Role Phone Jose Alejandro Boston MD Primary Care Provider [phone] Encounter Details Date Type Department Care Team (Late st Contact Info) Description 12/07/2018 Abstract SFL CONVERSION [address] [place] [address] , Generic Conversion, Social History Tobacco Use [...] on filedocumented in this encounter Care Teams Impersonator Character Relationship Specialty Start Date End Date Jose Alejandro Boston MD [address] [place] [address] PCP - General INTERNAL MEDICINE 07/29/19 documented as of this encounter
--- OUTSIDE RECORDS SUMMARY | 2024-09-26 14:34 | XMS_ITS | Clinical Summary ---
Author Organization [facility] Address [address] [place] [address] Care Team Providers Care Nursing Technician Name Role Phone Jose Alejandro Boston MD Primary Care Provider [phone] Allergies Active Allergy Reactions Criticality Noted Date [...] Department Care Team Description 08/11/2024 9:10 AM PLATE MILL MILL HAND Office Visit [facility] Orthopaedic Surgery [address] [facility] Medical Office Building [address] [place] [address] Manohar Ludwig MD Aftercare following [...] on file Legal Sex Female 6:25 AM PLATE MILL MILL HAND Gender Identity Not on file Sexual Orientation Not on file Obstetrics History Last Filed Vital Signs Vital Sign Reading Time Taken Comments Blood Pressure 91/60 07/13/2015 12:33 PM PLATE MILL MILL HAND Pulse 73 07/13/2015 12:33 PM PLATE MILL MILL HAND Temperature - - Respiratory Rate - - Oxygen Saturation 94% 07/13/2015 12:33 PM PLATE MILL MILL HAND Inhaled Oxygen Concentration - - Weight 83.2 kg (183 lb 6.4 oz) 05/05/2024 10:41 AM PLATE MILL MILL HAND Height 148.6 cm (4' 10.5 ) 05/05/2024 10:[address] Body Mass Index 37.68 05/05/2024 10:41 AM PLATE MILL MILL HAND Plan of Treatment Health Maintenance Due Date Last Done Comments Breast Cancer Screening-Mammogram 1964 Cervical Cancer Screening 1964 Colon Cancer Screening-Colonoscopy 1964 Depression Screening 1964 Hepatitis C Screening 1964 Hepatitis B Screening 1982 Regular Well Visit/Exam 18-64 1982 Covid-19 Vaccine (2 - 2023- season) 03/02/202411/2021 Influenza Vaccine (#1) 2024 04/02/2017 Pneumococcal vaccine <65 (3 of 3 - PCV20 or PCV21) 07/25/2024 07/25/2019, 06/19/2016 DTaP/Tdap/Td Vaccine (2 - Td or Tdap) 06/19/2026 Zoster Vaccine Completed 08/25/2020, 05/04/2020 Insurance Member Subscriber Plan / Payer (Ef fective 2023-Present) Name:Kylah Knight Relation to Subscriber:Self Name:Kylah Knight Payer ID:[id number] (NAIC) Type:[facility] H[facility]/PPO Address: [place] [id number] [facility] Member Subscriber Plan / Payer (Ef fective 2023-Present) Name:Kylah Knight Relation to Subscriber:Self Name:Kylah Knight Payer ID:[id number] (NAIC) Type:[facility] HMO/PPO Address: [place] [id number] Care Teams Nursing Technician Relationship Specialty Start Date End Date Jose Alejandro Boston MD [address] [place] [address] PCP - General 11/20/16
--- OUTSIDE RECORDS SUMMARY | 2024-09-26 14:34 | XMS_ITS | CONTINUITY OF CARE DOCUMENT ---
Author Name myla lanza Address Unknown Organization [facility] Address [address] [facility] [address] [place] [address] Phone [phone] Care Team Providers Care Drawer Waxer Name Role Phone Marti CANNON, Arslan Unavailable [phone] Arslan Kidd MD Unavailable JULIETA GRIFFIN MD Unavailable PROBLEMS Condition Status Date Provider Notes Hyperlipidemia;with high crp active Arslan Kidd MD B12 deficiency active Arslan Kidd MD Renal disease, chronic, mild active Arslan Kidd MD THYROID nodules active Arslan Kidd MD bni ngn by Valvular heart disease active Arslan Kidd MD Cardiovascular screening completed - Arslan Kidd MD Bradycardia;nml tsh;not do to rx active Arslan Kidd MD FAMILY HISTORY OF HEART DISEASE active Arslan Kidd MD Screening active Arslan Kidd MD a1c 5..5 Ascending aortic aneurysm active Arslan nugent MD Vitamin D deficiency active Arslan Torres Tobacco use, quit active Arslan Kidd MD Emphysema active Arslan Kidd MD Granulomatous lung disease active Arslan velazquez MD Obesity active Arslan Kidd MD Dizziness completed - Arslan Kidd MD Hemiblock, left anterior active Arslan hubbard MD Chest pain, etiology undefined completed - Arslan Kidd MD HTN borderline active Arslan Kidd MD Sleep apnea active Arslan Kidd MD did not want rx ENCOUNTERS Date Type Provider Location Encounter Diag nosis - In-person encounter Office Visit Arslan Kidd MD [facility] Bradycardia;nml tsh;not do to rxChest pain, etiology undefinedHTN borderlineSleep apnea - In-person encounter Office Visit Arslan Kidd MD [facility] Dizziness - In-person encounter Office Visit Arslan Kidd MD [facility] Hemiblock, left anterior - In-person encounter Office Visit Arslan Kidd MD [facility] - In-person encounter Office Visit Arslan Kidd MD [facility] - In-person encounter Office Visit Arslan Kidd MD [facility] Cardiovascular screeningBradycardia;nml tsh;not do to rxFAMILY HISTORY OF HEART DISEASEScreeningAscending aortic aneurysmVitamin D deficiencyTobacco use, quitEmphysemaGranulomatous lung diseaseObesity VITAL SIGNS Date Observation Value Provider Body Mass Index (Ratio) 37.45 kg/m2 Elizabeth Kidd MD blood pressure, diastolic 91 mm[Hg] Judith nkLoghillary blood pressure, systolic 132 mm[Hg] Jessica Fowlerhillary blood pressure, diastolic 91 mm[Hg] Shane macdonald [place] blood pressure, systolic 132 mm[Hg] Shanel monet [place] oxygen saturation, oximetry 97 % Bi [place] pulse rate 54 /min Bi [place] respiratory rate E&M 12 /min Bi jorgensen weight E&M 179.2 [lb_av] Bi [place] blood pressure, cuff size regular Shane Poon height E&M 58 [in_i] Bi [place] Body Mass Index (Ratio) 33.81 kg/m2 Elizabeth blas Kidd MD blood pressure, diastolic 97 mm[Hg] Li nkLogic blood pressure, systolic 144 mm[Hg] Jessica kLogic blood pressure, diastolic 97 mm[Hg] Li zbe [place] blood pressure, systolic 144 mm[Hg] Danisha [facility] blood pressure, cuff size regular [facility] pulse rate 56 /min [facility] oxygen saturation, oximetry 97 % [facility] respiratory rate E&M 12 /min [facility] weight E&M 161.8 [lb_av] [facility] height E&M 58 [in_i] [facility] Body [facility] Index (Ratio) 32.81 kg/m2 Elizabeth blas Kidd MD blood pressure, diastolic 80 mm[Hg] [...] Charles blood pressure, systolic 123 mm[Hg] Rho nda Araceli oxygen saturation, oximetry 98 % Elis Araceli pulse rate 60 /min Elis Araceli respiratory rate E&M 18 /min Elis Araceli weight E&M 166 [lb_av] Elis Araceli blood pressure, resting No Rhon da Araceli blood pressure, cuff size regular Rh onda Araceli height E&M 58 [in_i] Elis Araceli Body Mass Index (Ratio) 37.41 kg/m2 Elizabeth Kidd MD blood pressure, diastolic 82 mm[Hg] Rh ondanyelle Araceli blood pressure, systolic 122 mm[Hg] Rho nda Araceli oxygen saturation, oximetry 98 % Elisshabnam Charles blood pressure, resting No Rhon da Araceli blood pressure, cuff size regular Rh ondanyelle Araceli respiratory rate E&M 18 /min Elis [...] REFERRAL Date Service obiest [Description: Bariatric Surgery -[facility]] obesity [Description : Bariatric Surgery -[facility]] RESULTS Date Observation Value Provider Reference Range Interpretation Location 3 microalbumin/cre atinine ratio, urine <23 mg/g [facility] 1-29 Normal C, [address] [address] 3 creatinine, random, urine 52.3 mg/dL [facility] C, [place] [address] 3 microalbumin, random, urine <12.0 mg/L [facility] , [place] [address] HISTORY OF MEDICATION USE Medication Status Instructions Dates Provider Indications Com ments ergocalciferol (vitamin D2) 1,250 mcg (50,000 unit) capsule active TAKE 1 CAPSULE BY MOUTH ONCE A WEEK Arslan Kidd MD cyanocobalamin (vitamin B-12) 1,000 mcg capsule active TAKE 1 CAPSULE BY MOUTH EVERY DAY Arslan Kidd MD Wegovy 0.25 mg/0.5 mL pen injector active INJECT 1 SYRINGE SUBCUTANEOUSLY ONCE A WEEK Arslan Kidd MD Vitamin D3 50 mcg (2,000 unit) capsule completed Take 1 capsule by mouth once a day - Arslan Kidd MD OZEMPIC (0.25 OR 0.5 [...] - Elis Charles VITAMIN D3 1.25 MG (62394 UT) ORAL CAPSULE completed once a week [...] jimenez is a former smoker. Mich Jimenez NP social history reviewed E&M revi ewed - no changes required Mich Jimenez NP cigarette use yes Mich Jimenez [employer] smoking status Former smoker Mich Bermudeztomás reyes [employer] social history reviewed E&M revi ewed - no changes required Juju Alejo NP smoking status Former smoker Elis Charles cigarette use yes Elis Charles smoking status Former smoker Elis Charles social history E&M S moking History: Ok [...] Payer name Policy type / Coverage type Sukumar red democrat ID [employer] Commercial insurance RF Code [id number] [facility] [employer] insurance [facility] [id number] ADVANCE DIRECTIVES Name Date DISCUSSED - NO DECISION MADE TREATMENT PLAN Date Name Performer [id number],C,4.6 Arslan velazquez MD [id number],C,mod mr and mi ld to mod tr Arslan Kidd MD [id number],C,zero trevin and neg uacr, nml ef Arslan Kidd MD [id number],C,EKG in office today SB, HR 57. Mich Jimenez [employer] [id number],C,P atient reports off and on left sided sharp chest pain unrelated to activity. Will order stress test. Mich Jimenez JAS [id number],C,Echo today mi ld-mod tr Mich Jimenez [employer] [id number],C,L ast Vit D level 22 (07/2019) She is currently not taking any supplements. Advised paient to take OTC supplements 2000 units daily. Mich Jimenez [employer] [id number],C,N oted on CT scan (09/2021). Patient denies having any pulmonary symptoms. Will order CT lung. Mich Jimenez [employer] [id number],C,Quit smoking in 2019. Mich Jimenez [employer] [id number],C,E cho today 4.4. Repeat Echo in 1 year. Mich Boyereric [employer] [id number],C, z ero trevin Juju Alejo [employer] [id number],C,D aily, mostly with position changes. one near syncope episode. H olter monitor Juju Alejo [employer] [id number],C,CT next year Juju Alejo [employer] [id number],C,S table 4.7 r epeat next year Juju Alejo [employer] [id number],C,repeat next y ear Juju Alejo [employer] [id number],C,D aily, mostly with position changes. one near syncope episode. Juju Alejo [employer] [id number],C,o n weight watchers has lost 22.5lbs Juju Alejo [employer] [id number],C,S table 4.7 Juju Alejo [employer] [id number],C,downt to 4.7 Arslan Kidd MD [id number],C,4.[address] 4.3 by echo Arslan Kidd MD :55 Arslan Kidd MD Cardiology Arslan Kidd MD [...] nml ef H olman Kidd MD Cardiology-seen [facility] [employer]:EKG in of fice today SB, HR 57. Mich Jimenez NP Cardiology[facility] [employer]:Patient reports off and on left sided sharp chest pain unrelated to activity. Will order stress test. Mich Boyereric MARK Cardiology[facility] [employer]:Echo toda y mild-mod tr Mich Jimenez [employer] Cardiology[facility] [employer]:Last Vit D level 22 (07/2019) She is currently not taking any supplements. Advised paient to take OTC supplements 2000 units daily. Mich Boyereric MARK [facility]iology[facility] [employer]:Noted on CT scan (09/2021). Patient denies having any pulmonary symptoms. Will order CT lung. Mich Boyereric MARK [facility]iology[facility] [employer]:Quit smok ing in 2019. Mich Boyereric MARK [facility] [employer]:Echo today 4.4. Repeat Echo in 1 year. Mich Bermudezruth ann MARK Cardiology-seen with [employer]: z merlyo trevin Juju Alejo NP Cardiology-seen with [employer]:Daily, mostly with position changes. one near syncope episode. H olter monitor Juju Alejo NP Cardiology-seen with [employer]:CT next year Juju Alejo NP Cardiology-seen with [employer]:Stable 4.7 r epeat next year Juju Alejo NP Cardiology-seen with [employer]:repeat n ext year Juju Alejo NP Cardiology-seen with SUR[employer]YOR [employer]:Daily, mostly with position changes. one near syncope episode. Juju Alejo NP Cardiology-seen with SUR[employer]YOR [employer]:on weight watchers has lost 22.5lbs Juju Alejo NP Cardiology-seen with [employer]:Stable 4.7 Juju Alejo NP :downt to 4.7 Arslan Kidd MD robert?:4.[address] 4[address]3 by echo Darian Kidd MD Cardiology:had echoc ardiogram with mild MVR, EF of 60%, and miild TR O rders: 9 9214 MOD 30-39min (CPT-83079) B ariatric Surgery -[facility] (*) C ounseling LDCT (CPT-G0296) L ow Dose Lung CT (CPT-G0297) Holly Valles [employer] Cardiology:HR in the 60s. asymptomatic O rders: 9 14 MOD 30-39min (CPT-18243) B [facility] (*) Holly Valles SURVEYOR GEODETIC Cardiology:Had CT ex am and her ascendin Arotic Aneurysm is 4.9cm O rders: 14 MOD 30-39min (CPT-42298) B [facility] (*) C omplete Echo (CPT-06032) Holly Valles SUR[employer]YOR [employer] Cardiology:Did not t olerate the ozempic because she began having nausea, dizziness. Unable to take the medicaiton. w ill refer to the surgeons at [facility] O rders: 14 MOD 30-39min (CPT-20635) B [facility] (*) C omplete Echo (CPT-17077) Holly Valles SURVEYOR [employer]OD[employer]IC Cardiology:The patie nt is between 55-77 years [...] diagnosis and treatment. Orders: F VC - 48629 (26203) F RC - 61150 (84604) D LCO - 18360 (21021) 9 14 MOD 30-39min (CPT-73623) C omplete Echo (CPT-23684) C ounseling LDCT (CPT-G0296) L ow Dose Lung CT (CPT-G0297) B [facility] (*) Holly Valles SURVEYOR GEODETIC Cardiology:She no lo nger takes her vitamin D. last level last year was 22 O rders: F VC - 96170 (75685) F RC - 15891 (17815) D LCO - 11085 (30120) 9 9214 MOD 30-39min (CPT-15051) C omplete Echo (CPT-05431) C ounseling LDCT (CPT-G0296) L ow Dose Lung CT (CPT-G0297) B [facility] (*) Holly Valles SUR[employer] Cardiology:Patient w ants some help to lose weight. She has tried the contrave and it gave her headaches. O rders: F VC - 69544 (13891) F RC - 46547 (64663) D LCO - 12347 (46932) 9 9214 MOD 30-39min (CPT-65426) C omplete Echo (CPT-56464) C ounseling LDCT (CPT-G0296) L ow Dose Lung CT (CPT-G0297) B [facility] (*) Holly Valles SUR[employer]YOR [employer]IC Cardiology:Patient w ill need to have her aneursym rechecked to determine if any change in size. O rders: F VC - 95491 (51807) F RC - 39162 (58136) D LCO - 88787 (52631) 9 9214 MOD 30-39min (CPT-65175) C omplete Echo (CPT-84915) C ounseling LDCT (CPT-G0296) L ow Dose Lung CT (CPT-G0297) B [facility] (*) Hollymallory Millere SURVEYOR [employer]OD[employer]IC Cardiology:Ekg revei wed today rate 61 , without any rate altering medication O rders: E KG (CPT-11471) Holly Valles [employer] Cardiology:will rx Arslan Kidd MD Cardiology Arslan Kidd MD Cardiology Arslan Kidd MD Cardiology Arslan Kidd MD Cardiology:4.5 to 4.7 Arslan nugent MD Cardiology:zero trevin Arslan sandoval MD Cardiology Arslan Kidd MD Cardiology:lung scree by primnar ybabar Arslan Kidd MD Cardiology:bernice has suze Arslan Kidd MD Date Name Bariatric Surgery -S [...] CT Chest without con trast DLCO - 57401 FRC - 54146 FVC - 56571 Microalb/Creatinine Urine, Random Complete Echo Complete Echo Monitor - Telemetry (Mobile Cardiac) Low Dose Lung CT Complete Echo Low Dose Lung CT Complete Echo Low Dose Lung CT Low Dose Lung CT Complete Echo DLCO - 50835 FRC - 35079 FVC - 89869 Complete Echo DLCO - 71218 FRC - 66302 FVC - 25220 Holter Monitor [address], Coronary Calcium [...] d FVC / MVV with bronchodilator - 16689 Arslan Kidd MD completed BLOOD COUNT HEMOGLOBIN Arslan Kidd MD completed FRC - 26677 Arslan Kidd MD complet ed SpO2 w/o 6min walk/titration Arslan Kidd MD completed DLCO - 51297 Arslan Kidd MD comple gonzalo EKG Arslan Kidd MD complete d CT- Coronary CA score Arslan Kidd MD completed
== END 2024-09-26 14:31 | disposition home or self-care (01) ==
PROVIDERS: PCP Internal Medicine; Visit Provider Internal Medicine Cardiovascular Disease
DX: R07.9 Chest pain, unspecified (principal); I44.4 Left anterior fascicular block; I38 Endocarditis, valve unspecified; E66.9 Obesity, unspecified; L98.0 Pyogenic granuloma; I71.21 Aneurysm of the ascending aorta, without rupture
CPT/HCPCS: 71250

== ENCOUNTER 2024-10-09 11:51 | Outpatient (CLI) | payer OTHER, SELFPAY ==
--- NOTE | 2024-10-09 11:55 | ECHO_ITS ---
Patient Info Name: Kylah Knight Age: 59 years : 1965 Gender: Female Ht: 58 in Wt: 170 lbs BSA: 1.82 m2 HR: 55 bpm BP: 125 / 75 mmHg Heart Rhythm: Sinus Rhythm Technical Quality: Good Exam Date: 10/09/2024 12:13 PM Exam Location: Echo Lab Patient Status: Outpatient Admit Date: 10/09/2024 Staff Ordering Physician: Arslan Kidd MD Clinical Scientist: Reba Castro RDCS Attending Provider: Arslan Kidd MD Exam Type: CA echo doppler color flow Study Info Complete two-dimensional, color flow and Doppler transthoracic echocardiogram is performed. Summary 1. Complete two-dimensional, color flow and Doppler transthoracic echocardiogram is performed. 2. Left ventricular chamber dimension is normal. 3. Left ventricular systolic function is normal, estimated at 65-70%. 4. The left ventricular diastolic function is grade I diastolic dysfunction. 5. E/e' 13 is mildly elevated. 6. Left atrial chamber dimension is mildly enlarged. 7. The aortic valve is probably bicuspid. 8. There is mild to moderate mitral valve regurgitation. 9. There is mild tricuspid valve regurgitation. 10. No pulmonary hypertension, estimated pulmonary arterial systolic pressure is 32 mmHg. 11. The prox ascending aorta size is borderline dilated at 4.1 cm. Left Ventricle E/e' 13 is mildly elevated. Left ventricular chamber dimension is normal. Left ventricular systolic function is normal, estimated at 65-70%. The left ventricular diastolic function is grade I diastolic dysfunction. Right Ventricle Right ventricular chamber dimension is normal. Right ventricular systolic function is normal. Left Atria Left atrial chamber dimension is mildly enlarged. Right Atria Right atrial chamber dimension is normal. Aortic Valve The aortic valve is probably bicuspid. There is no aortic valve stenosis. There is no aortic valve regurgitation. Pulmonic Valve There is no pulmonic regurgitation. Mitral Valve There is no mitral valve stenosis. There is mild to moderate mitral valve regurgitation. Tricuspid Valve There is mild tricuspid valve regurgitation. No pulmonary hypertension, estimated pulmonary arterial systolic pressure is 32 mmHg. Pericardium/Pleural There is no pericardial effusion. Inferior Vena Cava Normal inferior vena cava with >50% collapse upon inspiration consistent with normal right atrial pressure, 5 mmHg. Aorta The prox ascending aorta size is borderline dilated at 4.1 cm. The aortic root size at the sinus of Valsalva is normal. Left Ventricular Outflow Tract Name Value Normal LVOT 2D LVOT Diameter 2.0 cm LVOT Doppler LVOT Peak Velocity 81 cm/s LVOT Peak Gradient 3 mmHg LVOT Mean Gradient 2 mmHg LVOT VTI 20 cm LVOT VTI/AV VTI Ratio 0.5 LVOT Stroke Volume 60 ml LVOT CO 3.3 l/min LVOT CI 1.8 l/min/m2 Pulmonic Valve Name Value Normal RVOT Doppler RVOT Peak Gradient 2 mmHg PV Doppler PV Peak Velocity 92 cm/s PV Peak Gradient 3 mmHg Mitral Valve Name Value Normal MV Doppler MV Decel [place] 416 cm/s2 MV PHT 54 ms MV Area (PHT) 4.1 cm2 4.0-5.0 MV Diastolic Function MV E Peak Velocity 77 cm/s MV A Peak Velocity 81 cm/s MV E/A 1.0 MV Decel Time 186 ms MV Annular TDI MV Septal e' Velocity 5.1 cm/s >=8.0 MV E/e' (Septal) 15.3 <=8.0 MV Lateral e' Velocity 6.5 cm/s >=10.0 MV E/e' (Lateral) 11.9 <=8.0 MV e' Average 5.78 MV E/e' (Average) 13.6 Tricuspid Valve Name Value Normal TV Regurgitation Doppler TR Peak Velocity 261 cm/s TR Peak Gradient 27 mmHg Estimated PAP/RSVP RA Pressure 5 mmHg <=5 PA Systolic Pressure 32 mmHg <36 RV Systolic Pressure 32 mmHg <36 TV Annular TDI TV Lateral Jia s' Velocity 11.8 cm/s 9.5-18.7 Aorta Name Value Normal Ascending Aorta Ao Root Diameter (MM) 1.8 cm Ao Root Diam Index (MM) 1.0 cm/m2 Ao [place] Diameter 3.7 cm 2.3-2.9 Aortic Valve Name Value Normal AV Doppler AV Peak Velocity 183 cm/s AV Peak Gradient 13 mmHg AV Mean Gradient 7 mmHg AV VTI 39 cm AV Area (Cont Eq VTI) 1.5 cm2 >=3.0 AV Area (Cont Eq Srinivas) 1.3 cm2 AV V1/V2 Ratio 0.44 AV Regurgitation 2D LVOT Area 3.1 cm2 Ventricles Name Value Normal LV Dimensions 2D/MM IVS Diastolic Thickness (2D) 0.8 cm 0.6-1.0 LVID Diastole (2D) 4.9 cm 3.8-5.2 LVIW Diastolic Thickness (2D) 0.7 cm 0.6-0.9 LVID Systole (2D) 3.0 cm 2.2-3.5 LVOT Diameter 2.0 cm LV Mass (2D Cubed) 123.24 g 67.00-162.00 LV Mass Index (2D Cubed) 68 g/m2 43-95 Relative Wall Thickness (2D) 0.30 LV Fractional Shortening/Ejection Fraction 2D/MM LV Fractional Shortening (2D) 38 % 27-45 LV EF (2D Teicholz) 69 % 54-74 LV Diastolic Volume (4C MOD) 56 ml LV EF (4C MOD) 78 % LV Diastolic Volume (2C MOD) 35 ml LV EF (2C MOD) 66 % LV Diastolic Volume (BP MOD) 48 ml 46-106 LV Diastolic Volume Index (BP MOD) 27 ml/m2 29-61 LV Systolic Volume (BP MOD) 12 ml 14-42 LV Systolic Volume Index (BP MOD) 7 ml/m2 8-24 LV EF (BP MOD) 75 % 54-74 LV Diastolic Length (4C) 6.4 cm LV Systolic Length (4C) 4.7 cm LV Stroke Volume (4C MOD) 44 ml Atria Name Value Normal LA Dimensions LA Dimension (MM) 3.1 cm 2.7-3.8 LA Volume (4C A-L) 42 ml LA Volume (BP A-L) 54 ml RA Dimensions RA Area (4C) 17.5 cm2 <=18.0 Report Signatures
--- OUTSIDE RECORDS SUMMARY | 2024-10-09 12:32 | XMS_ITS | Clinical Summary ---
Author Organization [facility] Address [address] [place] [address] Care Team Providers Care Asbestos Siding Installer Name Role Phone Jose Alejandro Boston MD Primary Care Provider [phone] Social History Tobacco Use Types Packs/Day Years [...] 2014 COVID-19 Vaccine (2023-2 5 season) 2024 RSV Immunization or 60+ Years (1 [...] SHIELD BLUE CROSS BLUE SHIELD Care Teams Asbestos Siding Installer Relationship Specialty Start Date End Date Jose Alejandro Boston MD [address] [place] [id number] PCP - General INTERNAL MEDICINE 07/29/19
--- OUTSIDE RECORDS SUMMARY | 2024-10-09 12:32 | XMS_ITS | Encounter Summary ---
Author Organization [facility] Address [facility] [place] [address] Care Team Providers Care Rotary Pump Operator Name Role Phone Jose Alejandro Boston MD Primary Care Provider [phone] Encounter Details Date Type Department Care Team (Late st Contact Info) Description 12/07/2018 Abstract [facility] [address] [facility] [place] [address] , Generic Conversion, Social History Tobacco Use [...] on filedocumented in this encounter Care Teams Rotary Pump Operator Relationship Specialty Start Date End Date Jose Alejandro Boston MD [address] [place] [address] PCP - General INTERNAL MEDICINE 07/29/19 documented as of this encounter
--- OUTSIDE RECORDS SUMMARY | 2024-10-09 12:32 | XMS_ITS | Clinical Summary ---
Author Organization [facility] Address [address] [place] [address] Care Team Providers Care Collection Supervisor Name Role Phone Jose Alejandro Boston MD Primary Care Provider [phone] Allergies Active Allergy Reactions Criticality Noted Date [...] Department Care Team Description 08/11/2024 9:10 AM AREA FORESTER Office Visit [facility] Orthopaedic Surgery [address] [facility] Medical Office Building [address] [place] [address] Manohar Ludwig MD Aftercare following [...] on file Legal Sex Female 6:25 AM AREA FORESTER Gender Identity Not on file Sexual Orientation Not on file Obstetrics History Last Filed Vital Signs Vital Sign Reading Time Taken Comments Blood Pressure 91/60 07/13/2015 12:33 PM AREA FORESTER Pulse 73 07/13/2015 12:33 PM AREA FORESTER Temperature - - Respiratory Rate - - Oxygen Saturation 94% 07/13/2015 12:33 PM AREA FORESTER Inhaled Oxygen Concentration - - Weight 83.2 kg (183 lb 6.4 oz) 05/05/2024 10:41 AM AREA FORESTER Height 148.6 cm (4' 10.5 ) 05/05/2024 10:[address] Body Mass Index 37.68 05/05/2024 10:41 AM AREA FORESTER Plan of Treatment Health Maintenance Due Date [...] 06/19/2026 Zoster Vaccine Completed 08/25/2020, 05/04/2020 Insurance [facility] Address: [place] [id number] [facility] Address: [place] [id number] Care Teams Collection Supervisor Relationship Specialty Start Date End Date Jose Alejandro Boston MD [address] [place] [address] PCP - General 11/20/16
--- OUTSIDE RECORDS SUMMARY | 2024-10-09 12:32 | XMS_ITS | CONTINUITY OF CARE DOCUMENT ---
Author Name myla lanza Address Unknown Organization [facility] Address [address] [facility] [address] [place] [address] Phone [phone] Care Team Providers Care Yardage Tufting Machine Operator Name Role Phone Marti CANNON, Arslan Unavailable [phone] Arslan Kidd MD Unavailable [phone] JULIETA GRIFFIN MD Unavailable PROBLEMS Condition Status [...] Screening active Arslan Kidd MD a1c 5..5 Vitamin D deficiency active Arslan Torres Tobacco use, quit active Arslan Kidd MD Emphysema active Arslan Kidd MD Granulomatous lung disease active Arslan velazquez MD Obesity active Arslan Kidd MD Dizziness completed - Arslan Kidd MD Hemiblock, left anterior active Arslan hubbard MD Sleep apnea active Arslan Kidd MD did not want rx HTN borderline active Arslan Kidd MD Chest pain, etiology undefined completed - Arslan Kidd MD Ascending aortic aneurysm active Arslan nugent MD ENCOUNTERS Date Type Provider Location Encounter Diag nosis - In-person encounter Office Visit Arslan Kidd MD [facility] Bradycardia;nml tsh;not do to rxChest pain, etiology undefinedHTN borderlineSleep apnea - In-person encounter Office Visit Arslan Kidd MD [facility] Dizziness - In-person encounter Office Visit Arslan Kidd MD [facility] Hemiblock, left anterior - In-person encounter Office Visit Arslan Kidd MD [facility] - In-person encounter Office Visit Arslan Kidd MD [facility] - In-person encounter Office Visit Arslan Kidd MD [facility] Cardiovascular screeningBradycardia;nml tsh;not do to rxFAMILY HISTORY OF HEART DISEASEScreeningAscending aortic aneurysmVitamin D deficiencyTobacco use, quitEmphysemaGranulomatous lung diseaseObesity VITAL SIGNS Date Observation Value Provider Body Mass Index (Ratio) 37.45 kg/m2 Elizabeth Kidd MD blood pressure, diastolic 91 mm[Hg] Judith nkLoghillary blood pressure, systolic 132 mm[Hg] Jessica Fowlerhillary blood pressure, diastolic 91 mm[Hg] Shane macdonald [facility] blood pressure, systolic 132 mm[Hg] Shanel monet [facility] oxygen saturation, oximetry 97 % Bi [facility] pulse rate 54 /min Bi [facility] respiratory rate E&M 12 /min Bi jorgensen weight E&M 179.2 [lb_av] Bi Cleve blood pressure, cuff size regular Shane Poon height E&M 58 [in_i] Bi Poon Body Mass Index (Ratio) 33.81 kg/m2 Elizabeth blas Kidd MD blood pressure, diastolic 97 mm[Hg] Li nkLogic blood pressure, systolic 144 mm[Hg] Jessica kLogic blood pressure, diastolic 97 mm[Hg] Li zbe Almonte blood pressure, systolic 144 mm[Hg] Danisha [facility] blood pressure, cuff size regular [facility] pulse rate 56 /min [facility] oxygen saturation, oximetry 97 % [facility] respiratory rate E&M 12 /min [facility].8 [lb_av] [facility] height E&M 58 [in_i] [facility] Body Mass Index (Ratio) 32.81 kg/m2 Elizabeth [...] REFERRAL Date Service obiest [Description: Bariatric Surgery -[facility]] obesity [Description : Bariatric Surgery -[facility]] RESULTS Date Observation Value Provider Reference Range Interpretation Location 3 microalbumin/cre atinine ratio, urine <23 mg/g [facility] 1-29 Normal C, [address] [address] 3 creatinine, random, urine 52.3 mg/dL [facility] C, [place] [address] 3 microalbumin, random, urine <12.0 mg/L [facility] , [place] [address] HISTORY OF MEDICATION USE Medication Status Instructions [...] - Elis Charles VITAMIN D3 1.25 MG (68822 UT) ORAL CAPSULE completed once a week [...] Jimenez NP cigarette use yes Mich Jimenez ECONOMIC DEVELOPMENT MANAGER smoking status Former smoker Mich Bermudeztomás reyes ECONOMIC DEVELOPMENT MANAGER social history reviewed E&M revi ewed - [...] Policy type / Coverage type Sukumar red constitution party ID [employer] Commercial insurance [employer] [id number] [facility] [employer] insurance co [facility] [id number] ADVANCE DIRECTIVES Name Date DISCUSSED - NO DECISION MADE TREATMENT PLAN Date Name Performer [id number],C,4.6 Arslan velazquez MD [id number],C,mod mr and mi ld to mod tr Arslan Kidd MD [id number],C,zero trevin and neg uacr, nml ef Arslan Kidd MD [id number],C,EKG in office today SB, HR 57. Mich Jimenez ECONOMIC DEVELOPMENT MANAGER [id number],C,P atient reports off and on left sided sharp chest pain unrelated to activity. Will order stress test. Mich Jimenez JAS [id number],C,Echo today mi ld-mod tr Mich Jimenez ECONOMIC DEVELOPMENT MANAGER [id number],C,L ast Vit D level 22 (07/2019) She is currently not taking any supplements. Advised paient to take OTC supplements 2000 units daily. Mich Jimenez ECONOMIC DEVELOPMENT MANAGER [id number],C,N oted on CT scan (09/2021). Patient denies having any pulmonary symptoms. Will order CT lung. Mich Jimenez ECONOMIC DEVELOPMENT MANAGER [id number],C,Quit smoking in 2019. Mich Jimenez ECONOMIC DEVELOPMENT MANAGER [id number],C,E cho today 4.4. Repeat Echo in 1 year. Mich Boyereric ECONOMIC DEVELOPMENT MANAGER [id number],C, z ero trevin Juju Alejo ECONOMIC DEVELOPMENT MANAGER [id number],C,D aily, mostly with position changes. one near syncope episode. H olter monitor Juju Alejo ECONOMIC DEVELOPMENT MANAGER [id number],C,CT next year Juju Alejo ECONOMIC DEVELOPMENT MANAGER [id number],C,S table 4.7 r epeat next year Juju Alejo ECONOMIC DEVELOPMENT MANAGER [id number],C,repeat next y ear Juju Alejo ECONOMIC DEVELOPMENT MANAGER [id number],C,D aily, mostly with position changes. one near syncope episode. Juju Alejo ECONOMIC DEVELOPMENT MANAGER [id number],C,o n weight watchers has lost 22.5lbs Juju Alejo ECONOMIC DEVELOPMENT MANAGER [id number],C,S table 4.7 Juju Alejo ECONOMIC DEVELOPMENT MANAGER [id number],C,downt to 4.7 Arslan Kidd MD [id number],C,4.[address] 4.3 by echo Arslan Kidd MD :4.7 Arslan Kidd MD :55 Arslan Kidd MD [...] nml ef H olman Kidd MD Cardiology[facility] ECONOMIC DEVELOPMENT MANAGER:EKG in of fice today SB, HR 57. Mich Jimenez NP Cardiology-seen [facility] ECONOMIC DEVELOPMENT MANAGER:Patient reports off and on left sided sharp chest pain unrelated to activity. Will order stress test. Mich Boyereric MARK Cardiology-seen [facility] ECONOMIC DEVELOPMENT MANAGER:Echo toda y mild-mod tr Mich Jimenez ECONOMIC DEVELOPMENT MANAGER Cardiology-seen [facility] ECONOMIC DEVELOPMENT MANAGER:Last Vit D level 22 (07/2019) She is currently not taking any supplements. Advised paient to take OTC supplements 2000 units daily. Mich Boyereric MARK Cardiology-seen [facility] ECONOMIC DEVELOPMENT MANAGER:Noted on CT scan (09/2021). Patient denies having any pulmonary symptoms. Will order CT lung. Mich Boyereric MARK Cardiology-seen [facility] ECONOMIC DEVELOPMENT MANAGER:Quit smok ing in 2019. Mich Boyereric MARK Cardiology-seen [facility] ECONOMIC DEVELOPMENT MANAGER:Echo today 4.4. Repeat Echo in 1 year. Mich Jimenez NP Cardiology-seen with ECONOMIC DEVELOPMENT MANAGER: z ero trevin Juju Alejo NP Cardiology-seen with ECONOMIC DEVELOPMENT MANAGER:Daily, mostly with position changes. one near syncope episode. H olter monitor Juju Alejo ECONOMIC DEVELOPMENT MANAGER Cardiology-seen with ECONOMIC DEVELOPMENT MANAGER:CT next year Juju Alejo NP Cardiology-seen with ECONOMIC DEVELOPMENT MANAGER:Stable 4.7 r epeat next year Juju Alejo ECONOMIC DEVELOPMENT MANAGER Cardiology-seen with ECONOMIC DEVELOPMENT MANAGER:repeat n ext year Juju Alejo NP Cardiology-seen with ECONOMIC DEVELOPMENT MANAGER:Daily, mostly with position changes. one near syncope episode. Juju Alejo NP Cardiology-seen with ECONOMIC DEVELOPMENT MANAGER:on weight watchers has lost 22.5lbs Juju Alejo NP Cardiology-seen with ECONOMIC DEVELOPMENT MANAGER:Stable 4.7 Juju Alejo NP :downt to 4.7 Arslan Kidd MD robert?:4.[address] 4[address]3 by echo Darian Kidd MD Cardiology:had echoc ardiogram with mild MVR, EF of 60%, and miild TR O rders: 9 9214 MOD 30-39min (CPT-35427) B [facility] (*) C ounseling LDCT (CPT-G0296) L ow Dose Lung CT (CPT-G0297) Holly Valles ECONOMIC DEVELOPMENT MANAGER Cardiology:HR in the 60s. asymptomatic O rders: 9213 MOD 30-39min (CPT-81399) B [facility] (*) Holly Valles ECONOMIC DEVELOPMENT MANAGER Cardiology:Had CT ex am and her ascendin Arotic Aneurysm is 4.9cm O rders: 9213 MOD 30-39min (CPT-47099) B [facility] (*) C omplete Echo (CPT-61112) Holly Valles ECONOMIC DEVELOPMENT MANAGER Cardiology:Did not t olerate the ozempic because she began having nausea, dizziness. Unable to take the medicaiton. w ill refer to the surgeons at [facility] O rders: 9213 MOD 30-39min (CPT-81180) B [facility] (*) C omplete Echo (CPT-73435) Holly Valles ECONOMIC DEVELOPMENT MANAGER Cardiology:The patie nt is between 55-77 years [...] diagnosis and treatment. Orders: F VC - 51478 (46128) F RC - 11967 (70749) D LCO - 01932 (82094) 9213 MOD 30-39min (CPT-93173) C omplete Echo (CPT-25685) C ounseling LDCT (CPT-G0296) L ow Dose Lung CT (CPT-G0297) B [facility] (*) Holly Valles ECONOMIC DEVELOPMENT MANAGER Cardiology:She no lo nger takes her vitamin D. last level last year was 22 O rders: F VC - 43289 (13988) F RC - 73325 (34855) D LCO - 10144 (29814) 9 9214 MOD 30-39min (CPT-05774) C omplete Echo (CPT-79611) C ounseling LDCT (CPT-G0296) L ow Dose Lung CT (CPT-G0297) B [facility] (*) Holly Valles ECONOMIC DEVELOPMENT MANAGER Cardiology:Patient w ants some help to lose weight. She has tried the contrave and it gave her headaches. O rders: F VC - 02589 (98192) F RC - 58098 (64773) D LCO - 35148 (14440) 9 9214 MOD 30-39min (CPT-32840) C omplete Echo (CPT-30892) C ounseling LDCT (CPT-G0296) L ow Dose Lung CT (CPT-G0297) B [facility] (*) Holly Valles ECONOMIC DEVELOPMENT MANAGER Cardiology:Patient w ill need to have her aneursym rechecked to determine if any change in size. O rders: F VC - 12859 (96981) F RC - 22975 (60897) D LCO - 29811 (86824) 9 9214 MOD 30-39min (CPT-05523) C omplete Echo (CPT-92611) C ounseling LDCT (CPT-G0296) L ow Dose Lung CT (CPT-G0297) B [facility] (*) Holly Valles ECONOMIC DEVELOPMENT MANAGER Cardiology:Ekg revei wed today rate 61 , without any rate altering medication O rders: E KG (CPT-80482) Holly Sandoval Hai ECONOMIC DEVELOPMENT MANAGER Cardiology:will rx Arslan Kidd MD Cardiology Arslan Kidd MD Cardiology Arslan Kidd MD Cardiology Arslan Kidd MD Cardiology:4.5 to 4.7 Arslan nugent MD Cardiology:zero trevin Arslan sandoval MD Cardiology Arslan Kidd MD Cardiology:lung scree by primnar ybabar Arslan Kidd MD Cardiology:mom has suze Arslan Kidd MD Date Name [...] CT Chest without con trast DLCO - 22202 FRC - 08533 FVC - 36671 Microalb/Creatinine Urine, Random Complete Echo Complete Echo Monitor - Telemetry (Mobile Cardiac) Low Dose Lung CT Complete Echo Low Dose Lung CT Complete Echo Low Dose Lung CT Low Dose Lung CT Complete Echo DLCO - 46240 FRC - 90417 FVC - 58852 Complete Echo DLCO - 14969 FRC - 73921 FVC - 77886 Holter Monitor [address], Coronary Calcium [...] d FVC / MVV with bronchodilator - 48449 Arslan Kidd MD completed BLOOD COUNT HEMOGLOBIN Arslan Kidd MD completed FRC - 33615 Arslan Kidd MD complet ed SpO2 w/o 6min walk/titration Arslan Kidd MD completed DLCO - 70758 Arslan Kidd MD comple gonzalo EKG Arslan Kidd MD complete d CT- Coronary CA score Arslan Kidd MD completed
--- OUTSIDE RECORDS SUMMARY | 2024-10-09 12:32 | XMS_ITS | Referral Summary ---
Author Organization [facility] Address [address] [place] [address] Care Team Providers Care [employer] Basketball [employer] Scout Name Role Phone Jose Alejandro Boston MD Primary Care Provider [phone] Encounters Date Type Department Care Team Description 08/11/2024 9:10 AM PLUG SAW OPERATOR Office Visit [facility] Orthopaedic Surgery [address] [place] [address] Medical Office Building [address] [place] [address] Manohar Ludwig MD Aftercare following [...] on file Legal Sex Female 6:25 AM PLUG SAW OPERATOR Gender Identity Not on file Sexual Orientation Not on file Last Filed Vital Signs Vital Sign Reading Time Taken Comments Blood Pressure 91/60 07/13/2015 12:33 PM PLUG SAW OPERATOR Pulse 73 07/13/2015 12:33 PM PLUG SAW OPERATOR Temperature - - Respiratory Rate - - Oxygen Saturation 94% 07/13/2015 12:33 PM PLUG SAW OPERATOR Inhaled Oxygen Concentration - - Weight 83.2 kg (183 lb 6.4 oz) 05/05/2024 10:41 AM PLUG SAW OPERATOR Height 148.6 cm (4' 10.5 ) 05/05/2024 10:[address] Body Mass Index 37.68 05/05/2024 10:41 AM PLUG SAW OPERATOR Plan of Treatment Not on file Insurance [facility] Care Teams National Basketball [employer] Scout Relationship Specialty Start Date End Date Jose Alejandro Boston MD [address] [place] [address] PCP - General 11/20/16
== END 2024-10-09 11:52 | disposition home or self-care (01) ==
LOC: CHSIMG 11:53
PROVIDERS: PCP Internal Medicine; Visit Provider Internal Medicine Cardiovascular Disease
DX: R07.9 Chest pain, unspecified (principal); E04.1 Nontoxic single thyroid nodule; I44.4 Left anterior fascicular block; E66.9 Obesity, unspecified; L98.0 Pyogenic granuloma; I08.3 Combined rheumatic disorders of mitral, aortic and tricuspid valves
CPT/HCPCS: 93306

== ENCOUNTER 2024-12-10 09:14 | Outpatient (CLI) | payer OTHER, SELFPAY ==
[2024-12-10 09:39] LABS: Hematocrit 41.2 % (35.0-49.0); Hemoglobin 13.4 g/dL (12.0-15.0); Mean Corpuscular HGB Conc 32.5 g/dL (32-36); Mean Corpuscular Hemoglobin 29.6 pg (27.0-31.0); Mean Corpuscular Volume 91.2 fL (78.0-102.0); Mean Platelet Volume 10.5 fl (9.2-11.8); Platelet Count Result 184 K/mm3 (150-420); Red Blood Count 4.52 M/mm3 (4.20-5.40); Red Cell Distribution Width 11.7 % (11.6-14.4); White Blood Count 3.6 K/mm3 (4.8-10.8)
--- OUTSIDE RECORDS SUMMARY | 2024-12-10 10:01 | XMS_ITS | Clinical Summary ---
Author Organization [facility] Address [address] [place] [address] Care Team Providers Care Private Mortgage Banker Safe Name Role Phone Jose Alejandro Boston MD Primary Care Provider [phone] Allergies Active Allergy Reactions Criticality Noted Date [...] on file Legal Sex Female 6:25 AM MIG TIG WELDER Gender Identity Not on file Sexual Orientation Not on file Obstetrics History Last Filed Vital Signs Vital Sign Reading Time Taken Comments Blood Pressure 91/60 07/13/2015 12:33 PM MIG TIG WELDER Pulse 73 07/13/2015 12:33 PM MIG TIG WELDER Temperature - - Respiratory Rate - - Oxygen Saturation 94% 07/13/2015 12:33 PM MIG TIG WELDER Inhaled Oxygen Concentration - - Weight 83.2 kg (183 lb 6.4 oz) 05/05/2024 10:41 AM MIG TIG WELDER Height 148.6 cm (4' 10.5) 05/05/2024 10:[address] Body Mass Index 37.68 05/05/2024 10:41 AM MIG TIG WELDER Plan of Treatment Health Maintenance Due Date Last Done Comments Breast Cancer Screening-Mammogram 1965 Cervical Cancer Screening 1965 Colon Cancer Screening-Colonoscopy 1965 Depression Screening 1965 Hepatitis C Screening 1965 Hepatitis B Screening 1982 Regular Well Visit/Exam 18-64 1982 Covid-19 Vaccine ( season) 03/02/202411/2021 Pneumococcal vaccine <65 (3 of 3 - PCV20 or PCV21) 07/25/2024 07/25/2019, 06/19/2016 Influenza Vaccine (Season Ended) 2025 04/02/20 17 DTaP/Tdap/Td Vaccine (2 - Td or Tdap) 06/19/2026 Zoster Vaccine Completed 08/25/2020, 05/04/2020 Insurance Care Teams Private Mortgage Banker Safe Relationship Specialty Start Date End Date Jose Alejandro Boston MD [address] [place], [place] [id number] PCP - General 11/20/16
--- OUTSIDE RECORDS SUMMARY | 2024-12-10 10:01 | XMS_ITS | Referral Summary ---
Author Organization [facility] Address [address] [place] [address] Care Team Providers Care Director Of Outside Sales Name Role Phone Jose Alejandro Boston MD Primary Care Provider + [phone] Allergies Active Allergy Reactions Criticality Noted Date [...] on file Legal Sex Female 6:25 AM DERMATOLOGY TECHNICIAN Gender Identity Not on file Sexual Orientation Not on file Last Filed Vital Signs Vital Sign Reading Time Taken Comments Blood Pressure 91/60 07/13/2015 12:33 PM DERMATOLOGY TECHNICIAN Pulse 73 07/13/2015 12:33 PM DERMATOLOGY TECHNICIAN Temperature - - Respiratory Rate - - Oxygen Saturation 94% 07/13/2015 12:33 PM DERMATOLOGY TECHNICIAN Inhaled Oxygen Concentration - - Weight 83.2 kg (183 lb 6.4 oz) 05/05/2024 10:41 AM DERMATOLOGY TECHNICIAN Height 148.6 cm (4' 10.5) 05/05/2024 10:[address] Body Mass Index 37.68 05/05/2024 10:41 AM DERMATOLOGY TECHNICIAN Plan of Treatment Not on file Insurance [facility] [place] Care Teams Director Of Outside Sales Relationship Specialty Start Date End Date Jose Alejandro Boston MD [address] [place] [address] PCP - General 11/20/16
--- OUTSIDE RECORDS SUMMARY | 2024-12-10 10:01 | XMS_ITS | CONTINUITY OF CARE DOCUMENT ---
Author Name myla lanza Address Unknown Organization [facility] Address [address] [place] [address] Phone [phone] Care Team Providers Care Paint Process Engineer Name Role Phone Marti CANNON, Arslan Unavailable Arslan Kidd MD Unavailable JULIETA GRIFFIN MD Unavailable PROBLEMS Condition Status Date Provider Notes Pulmonary hypertension active Arslan Kidd MD Diastolic dysfunction active Arslan Kidd MD Hyperlipidemia;with high crp active Arslan Kidd MD B12 deficiency active Arslan Kidd MD THYROID nodules active Arslan Kidd MD bni ngn by Valvular heart disease active Arslan Kidd MD Cardiovascular screening completed - Arslan Kidd MD Bradycardia;nml tsh;not do to rx active Arslan Kidd MD FAMILY HISTORY OF HEART DISEASE active Arslan Kidd MD Screening active Arslan Kidd MD Ascending aortic aneurysm active Arslan nugent MD Vitamin D deficiency active Arslan Torres Tobacco use, quit active Arslan Kidd MD Emphysema active Arslan Kidd MD Granulomatous lung disease active Arslan velazquez MD Obesity active Arslan Kidd MD could no t get werogy Dizziness completed - Arslan Kidd MD Hemiblock, left anterior active Arslan hubbard MD Chest pain, etiology undefined completed - Arslan Kidd MD HTN borderline active Arslan Kidd MD Sleep apnea active Arslan Kidd MD did not want rx Renal disease, chronic, mild active Arslan Kidd MD neg uacr Hiatal hernia active Arslan Kidd MD ENCOUNTERS Date Type Provider Location Encounter Diag nosis - In-person encounter Office Visit Arslan Kdid MD [facility] ScreeningObesityRenal disease, chronic, mildHiatal hernia - In-person encounter Office Visit Arslan Kidd MD [facility] Bradycardia;nml tsh;not do to rxChest pain, etiology undefinedHTN borderlineSleep apnea - In-person encounter Office Visit Arslan Kidd MD [facility] Dizziness - In-person encounter Office Visit Arslan Kidd MD [facility] Hemiblock, left anterior - In-person encounter Office Visit Arslan Kidd MD [facility] - In-person encounter Office Visit Arslan Kidd MD [facility] - In-person encounter Office Visit Arslan Kidd MD [facility] Cardiovascular screeningBradycardia;nml tsh;not do to rxFAMILY HISTORY OF HEART DISEASEScreeningAscending aortic aneurysmVitamin D deficiencyTobacco use, quitEmphysemaGranulomatous lung diseaseObesity VITAL SIGNS Date Observation Value Provider Body Mass Index (Ratio) 35.86 kg/m2 Elizabeth Kidd MD pulse rate 63 /min Mich Jimenez NP oxygen saturation, oximetry 95 % Mich Jimenez NP blood pressure, diastolic 80 mm[Hg] Ve vanita Jimenez FUND ACCOUNTANT blood pressure, systolic 130 mm[Hg] Phong Jimenez FUND ACCOUNTANT weight E&M 171.6 [lb_av] Mich Boyerri FUND ACCOUNTANT Body Mass Index (Ratio) 37.45 kg/m2 Elizabeth Kidd MD blood pressure, diastolic 91 mm[Hg] Li nkLogic blood pressure, systolic 132 mm[Hg] Jessica kLogic blood pressure, diastolic 91 mm[Hg] Ky renae Cleve blood pressure, systolic 132 mm[Hg] Kyl ia Cleve oxygen saturation, oximetry 97 % Kylia Cleve pulse rate 54 /min Kylia Cleve respiratory rate E&M 12 /min [facility]ilori [facility] weight E&M 179.2 [lb_av] Kylia Cleve blood pressure, cuff size regular Ky renae Cleve height E&M 58 [in_i] Kylia Cleve Body Mass Index (Ratio) 33.81 kg/m2 Elizabeth Kidd MD blood pressure, diastolic 97 mm[Hg] Li nkLogic blood pressure, systolic 144 mm[Hg] Jessica kLogic blood pressure, diastolic 97 mm[Hg] Li zbeth Almonte blood pressure, systolic 144 mm[Hg] Danisha janet Almonte blood pressure, cuff size regular Li zbeth Almonte pulse rate 56 /min Nona Almonte oxygen saturation, oximetry 97 % Nona Almonte respiratory rate E&M 12 /min Nona Almonte weight E&M 161.8 [lb_av] Nona Almonte height E&M 58 [in_i] Nona Almonte Body Mass Index (Ratio) 32.81 kg/m2 Elizabeth [...] Kidd MD blood pressure, diastolic 74 mm[Hg] Rh onda Araceli blood pressure, systolic 123 mm[Hg] Rho shabnam Charles oxygen saturation, oximetry 98 % Elis Charles pulse rate 60 /min Elislori Charles respiratory rate E&M 18 /min Elislori Charles weight E&M 166 [lb_av] Elislori Charles blood pressure, resting No Rhon da Araceli blood pressure, cuff size regular Rh ondanyelle Charles height E&M 58 [in_i] Elislori Charles Body Mass Index (Ratio) 37.41 kg/m2 Elizabeth Kidd MD blood pressure, diastolic 82 mm[Hg] Rh onda Araceli blood pressure, systolic 122 mm[Hg] Rho nda Araceli oxygen saturation, oximetry 98 % Elsi Charles blood pressure, resting No Rhon da Araceli blood pressure, cuff size regular Rh onda Araceli respiratory rate E&M 18 /min Elislori Charles pulse rate 65 /min Elis Araceli weight E&M 179 [lb_av] Elis Charles height E&M 58 [in_i] Elis Charles Body Mass Index (Ratio) 31.97 kg/m2 Elizabeth Kidd MD blood pressure, resting No [facility] respiratory rate E&M 16 /min [facility] pulse rate 58 /min [facility] oxygen saturation, oximetry 95 % [facility] blood pressure, diastolic 79 mm[Hg] To [facility] blood pressure, systolic 117 mm[Hg] Ton [facility] weight E&M 153 [lb_av] [facility] height E&M 58 [in_i] [facility] ALLERGIES Allergy Name Onset Date Reaction Criticality Status CONTRAVE Low Criticality active PENICILLIN Low Criticality active REASON FOR REFERRAL Date Service obiest [Description: [facility]] obesity [Description : [facility]] RESULTS Date Observation Value Provider Reference Range Interpretation Location 3 microalbumin/cre atinine ratio, urine <23 mg/g LinkLogic 1-29 Normal [place] [address] 3 creatinine, random, urine 52.3 mg/dL [place] [address] 3 microalbumin, random, urine <12.0 mg/L [place] [address] HISTORY OF MEDICATION USE Medication Status Instructions Dates Provider Indications Com ments Crestor 5 mg tablet active 1 tablet by mouth once a day Arslan Kidd MD ramipril 1.25 mg capsule active 1 capsule by mouth once a day Arslan Kidd MD ergocalciferol (vitamin D2) 1,250 mcg (50,000 unit) capsule active TAKE 1 CAPSULE BY MOUTH ONCE A WEEK Arslan Kidd MD cyanocobalamin (vitamin B-12) 1,000 mcg capsule active TAKE 1 CAPSULE BY MOUTH EVERY DAY Arslan Kidd MD Wegovy 0.25 mg/0.5 mL pen injector completed INJECT 1 SYRINGE SUBCUTANEOUSLY ONCE A WEEK - Arslan Kidd MD Vitamin D3 50 mcg [...] TABLET completed ONE TAB. DAILY - Elis Charels VITAMIN D3 1.25 MG (89717 UT) ORAL CAPSULE completed once a week one tab - Elis Charles SOCIAL HISTORY Date Observation Value Provider smoking, date started 1975 Arslan Kidd MD smoking history, tot al pack/year 365 Arslan Kidd MD smoking history, tot al pack/day 1 Arslan Kidd MD cigarette use yes Arslan Kidd MD smoking status Former smoker Arslan sandoval MD quit smoking, stage quit Arslan chan MD smoking, date started 1975 Arslan Kidd MD smoking history, tot al pack/year 365 Arslan Kidd MD smoking history, tot al pack/day 1 Arslan Kidd MD cigarette use yes Arslan Kidd MD smoking status Former smoker Arslan sandoval MD social history E&M S moking History: Ok jimenez is a former smoker. Mich Jimenez FUND ACCOUNTANT social history reviewed E&M revi ewed - no changes required Mich Jimenez FUND ACCOUNTANT cigarette use yes Mich Jimenez FUND ACCOUNTANT smoking status Former smoker Mich Boyer ri FUND ACCOUNTANT social history reviewed E&M revi ewed - no changes required Juju Gabrielle Alejo FUND ACCOUNTANT smoking status Former smoker Elis Araceli cigarette use yes Elis Araceli smoking status Former smoker Elis Araceli social history E&M S moking History: Ok jimenez currently smokes every day. Arslan Kidd MD social history reviewed E&M revi ewed - no changes required Arslan Kidd MD quit smoking, stage quit Arslan chan MD smoking, date started 1975 [facility] smoking history, tot al pack/year 365 Tonsha Pino smoking history, tot al pack/day 1 Tonsha Pino cigarette use yes [facility] smoking status [facility]IST[facility] Family Member Condition Father Family History Unkno wn Mother Family History of Hy pertension: Mother Family History of Di abetes: Mother Family History of CV A or Stroke: INSURANCE PROVIDERS Payer name Policy type / Coverage type [place] [employer] party ID [employer] Commercial insurance co [facility] [id number] ADVANCE DIRECTIVES Name Date DISCUSSED - NO DECISION MADE TREATMENT PLAN Date Name Performer [id number],C,4.6 Arslan velazquez MD [id number],C,mod mr and mi ld to mod tr Arslan Kidd MD [id number],C,zero trevin and neg uacr, nml ef Arslan Kidd MD [id number],C,EKG in office today SB, HR 57. Mich Jimenez FUND ACCOUNTANT [id number],C,P atient reports off and on left sided sharp chest pain unrelated to activity. Will order stress test. Mich Jimenez FUND ACCOUNTANT [id number],C,Echo today mi ld-mod tr Mich Jimenez FUND ACCOUNTANT [id number],C,L ast Vit D level 22 (07/2019) She is currently not taking any supplements. Advised paient to take OTC supplements 2000 units daily. Mich Jimenez FUND ACCOUNTANT [id number],C,N oted on CT scan (09/2021). Patient denies having any pulmonary symptoms. Will order CT lung. Mich Jimenez FUND ACCOUNTANT [id number],C,Quit smoking in 2019. Mich Jimenez FUND ACCOUNTANT [id number],C,E cho today 4.4. Repeat Echo in 1 year. Mich Jimenez FUND ACCOUNTANT [id number],C, z ero trevin Juju Alejo [id number],C,D aily, mostly with position changes. one near syncope episode. H olter monitor Juju Alejo FUND ACCOUNTANT [id number],C,CT next year Juju Alejo FUND ACCOUNTANT [id number],C,S table 4.7 r epeat next year Juju Alejo FUND ACCOUNTANT [id number],C,repeat next y ear Juju Alejo [id number],C,D aily, mostly with position changes. one near syncope episode. Juju Alejo FUND ACCOUNTANT [id number],C,o n weight watchers has lost 22.5lbs Juju Alejo FUND ACCOUNTANT [id number],C,S table 4.7 Juju Alejo FUND ACCOUNTANT [id number],C,downt to 4.7 Arslan Kidd MD [id number],C,4.[address] 4.3 by echo Arslan Kidd MD Cardiology Arslan Kidd MD Cardiology Arslan Kidd MD Cardiology Arslan Kidd MD Cardiology Arslan Kidd MD Cardiology:The patie nt is between 50-77 years old and has smoked at least 20 pack years. The patient is either a [...] is willing to undergo diagnosis and treatment. Arslan Kidd MD Cardiology:neg a1xc z ero trevin and neg uacr, nml ef Arslan Kidd MD Cardiology Arslan Kidd MD Cardiology: e f 67 Arslan Kidd MD Cardiology:4.1 by echo 4[address] Arslan Kidd MD Cardiology: b icuspeid av, mild to mod mr and mild tr Arslan Kidd MD Cardiology:31 Arslan Kidd MD Cardiology: 5 5 Arslan Kidd MD :4.1 Arslan Kidd MD :32 Arslan Kidd MD :bicuspeid av, mild to mod mr an d mild tr Arslan Kidd MD :ef 67 Arslan Kidd MD :4.7 Arslan Kidd MD [...] nml ef H olman Kidd MD Cardiology-seen [facility] FUND ACCOUNTANT:[facility] SB, HR 57. Mich Jimenez NP Cardiology-seen [facility] FUND ACCOUNTANT:Patient reports off and on left sided sharp chest pain unrelated to activity. Will order stress test. Mich Jimenez NP Cardiology-seen [facility] FUND ACCOUNTANT:Echo toda y mild-mod tr Mich Jimenez NP Cardiology-seen [facility] FUND ACCOUNTANT:Last Vit D level 22 (07/2019) She is currently not taking any supplements. Advised paient to take OTC supplements 2000 units daily. Mich Jiemnez NP Cardiology-seen [facility] FUND ACCOUNTANT:Noted on CT scan (09/2021). Patient denies having any pulmonary symptoms. Will order CT lung. Mich Jimenez NP Cardiology-seen [facility] FUND ACCOUNTANT:Quit smok ing in 2019. Mich Jimenez NP Cardiology-seen [facility] FUND ACCOUNTANT:Echo today 4.4. Repeat Echo in 1 year. Mich Jimenez NP Cardiology-seen with FUND ACCOUNTANT: z ero trevin Juju Alejo NP Cardiology-seen with FUND ACCOUNTANT:Daily, mostly with position changes. one near syncope episode. H olter monitor Juju Alejo FUND ACCOUNTANT Cardiology-seen with FUND ACCOUNTANT:CT next year Juju Alejo FUND ACCOUNTANT Cardiology-seen with FUND ACCOUNTANT:Stable 4.7 r epeat next year Juju Alejo FUND ACCOUNTANT Cardiology-seen with FUND ACCOUNTANT:repeat n ext year Juju Alejo NP Cardiology-seen with FUND ACCOUNTANT:Daily, mostly with position changes. one near syncope episode. Juju Alejo FUND ACCOUNTANT Cardiology-seen with FUND ACCOUNTANT:on weight watchers has lost 22.5lbs Juju Alejo FUND ACCOUNTANT Cardiology-seen with FUND ACCOUNTANT:Stable 4.7 Juju Alejo JAS :downt to 4.7 Arslan Kidd MD robert?:4.[address] 4[address]3 by echo Darian Kidd MD Cardiology:had echoc ardiogram with mild MVR, EF of 60%, and miild TR O rders: 9 14 MOD 30-39min (CPT-66926) B [facility] (*) C ounseling LDCT (CPT-G0296) L ow Dose Lung CT (CPT-G0297) Holly Valles FUND ACCOUNTANT Cardiology:HR in the 60s. asymptomatic O rders: 9 9214 MOD 30-39min (CPT-29488) B [facility] (*) Holly Valles FUND ACCOUNTANT Cardiology:Had CT ex am and her ascendin Arotic Aneurysm is 4.9cm O rders: 9 9214 MOD 30-39min (CPT-27828) B [facility] (*) C omplete Echo (CPT-53279) Hollymallory Valles FUND ACCOUNTANT Cardiology:Did not t olerate the ozempic because she began having nausea, dizziness. Unable to take the medicaiton. w ill refer to the surgeons at [facility] O rders: 9 9214 MOD 30-39min (CPT-89380) B [facility] (*) C omplete Echo (CPT-71950) Holly Valles FUND ACCOUNTANT Cardiology:The patie nt is between 55-77 years [...] diagnosis and treatment. Orders: F VC - 82239 (35146) F RC - 89086 (10200) D LCO - 84645 (93823) 9 9214 MOD 30-39min (CPT-98125) C omplete Echo (CPT-92478) C ounseling LDCT (CPT-G0296) L ow Dose Lung CT (CPT-G0297) B [facility] (*) Holly Valles FUND ACCOUNTANT Cardiology:She no lo nger takes her vitamin D. last level last year was 22 O rders: F VC - 16510 (30751) F RC - 66475 (00815) D LCO - 05950 (19575) 9 9214 MOD 30-39min (CPT-98361) C omplete Echo (CPT-71344) C ounseling LDCT (CPT-G0296) L ow Dose Lung CT (CPT-G0297) B [facility] (*) Holly Valles FUND ACCOUNTANT Cardiology:Patient w ants some help to lose weight. She has tried the contrave and it gave her headaches. O rders: F VC - 90466 (79573) F RC - 35816 (50605) D LCO - 74522 (56571) 9 9214 MOD 30-39min (CPT-20841) C omplete Echo (CPT-16999) C ounseling LDCT (CPT-G0296) L ow Dose Lung CT (CPT-G0297) B [facility] (*) Holly Valles FUND ACCOUNTANT Cardiology:Patient w ill need to have her aneursym rechecked to determine if any change in size. O rders: F VC - 78590 (98938) F RC - 87260 (54604) D LCO - 23829 (52264) 9 9214 MOD 30-39min (CPT-89042) C omplete Echo (CPT-41043) C ounseling LDCT (CPT-G0296) L ow Dose Lung CT (CPT-G0297) B [facility] (*) Holly Millere FUND ACCOUNTANT Cardiology:Ekg revei wed today rate 61 , without any rate altering medication O rders: E KG (CPT-10817) Holly Lori Hai FUND ACCOUNTANT Cardiology:will rx Arslan Kidd MD Cardiology Arslan Kidd MD Cardiology Arslan Kidd MD Cardiology Arslan Kidd MD Cardiology:4.5 to 4.7 Arslan nugent MD Cardiology:zero trevin Arslan sandoval MD Cardiology Arslan Kidd MD Cardiology:lung scree by primnar ybabar Kidd MD Cardiology:mom has suze Kidd MD Date Name [facility] Renal Artery Duplex Kidney Ultrasound Low Dose Lung CT Complete Echo RPM (remote patient monitoring) IRON AND TOTAL IRON BINDING CAPACITY FERRITIN CBC (INCLUDES DIFF/P LT) COMPREHENSIVE METABO LIC PANEL, W/EGFR CRP, high sensitivit y Lipoprotein (a) LIPID PANEL HEMOGLOBIN A1c Vitamin D, 25-Hydrox y VITAMIN B12 CT Chest without con trast Complete Echo Stress Routine CT Chest without con trast DLCO - 15934 FRC - 45762 FVC - 24264 Microalb/Creatinine Urine, Random Complete Echo Complete Echo Monitor - Telemetry (Mobile Cardiac) Low Dose Lung CT Complete Echo Low Dose Lung CT Complete Echo Low Dose Lung CT Low Dose Lung CT Complete Echo DLCO - 20511 FRC - 81186 FVC - 08998 Complete Echo DLCO - 08231 FRC - 08097 FVC - 58855 Holter Monitor [address], Coronary Calcium Score HISTORY OF PROCEDURES Procedure Date Procedure Name Provider Procedure Notes S tatus Counseling LDCT Mich Jimenez NP co mpleted Complex e/m visit add on Mich Jimenez NP completed Complex e/m visit add on Arslan Kidd [...] d FVC / MVV with bronchodilator - 75138 Arslan Kidd MD completed BLOOD COUNT HEMOGLOBIN Arslan Kidd MD completed FRC - 04337 Arslan Kidd MD complet ed SpO2 w/o 6min walk/titration Arslan Kidd MD completed DLCO - 63664 Arslan Kidd MD comple gonzalo EKG Arslan Kidd MD complete d CT- Coronary CA score Arslan Kidd MD completed
[2024-12-10 10:11] LABS: Band Neutrophils Percent 0 % (0-6); Eosinophils Percent Manual 3 % (1-6); Lymphocytes Absolute Manual 1.15 K/mm3 (1.1-4.5); Lymphocytes Percent Manual 32 % (18-44); Monocytes Absolute Manual 0.32 K/mm3 (0.1-0.90); Monocytes Percent Manual 9 % (3-9); Neutrophils Absolute Manual 2.01 K/mm3 (1.3-6.7); Neutrophils Percent Manual 56 % (46-73); Platelet Estimate Adequate (Adequate); Total Cells Counted 100
[2024-12-10 10:12] LABS: Anisocytosis 1+; Schistocytes None Seen
== END 2024-12-10 09:15 | disposition home or self-care (01) ==
LOC: CHSLAB 09:17
PROVIDERS: PCP Internal Medicine; Visit Provider Internal Medicine
DX: D70.9 Neutropenia, unspecified (principal)
CPT/HCPCS: 36415; 85025

== ENCOUNTER 2025-01-30 13:00 | Outpatient (CLI) | payer OTHER, SELFPAY ==
--- OUTSIDE RECORDS SUMMARY | 2025-01-30 13:05 | XMS_ITS | Clinical Summary ---
Author Organization [facility] Address [address] [place] [address] Care Team Providers Care Hog Worker Name Role Phone Jose Alejandro Boston MD Primary Care Provider + [phone] Allergies Active Allergy Reactions Criticality Noted Date [...] on file Legal Sex Female 6:25 AM SOCIAL WORK SUPERVISOR Gender Identity Not on file Sexual Orientation Not on file Obstetrics History Last Filed Vital Signs Vital Sign Reading Time Taken Comments Blood Pressure 91/60 07/13/2015 12:33 PM SOCIAL WORK SUPERVISOR Pulse 73 07/13/2015 12:33 PM SOCIAL WORK SUPERVISOR Temperature - - Respiratory Rate - - Oxygen Saturation 94% 07/13/2015 12:33 PM SOCIAL WORK SUPERVISOR Inhaled Oxygen Concentration - - Weight 83.2 kg (183 lb 6.4 oz) 05/05/2024 10:41 AM SOCIAL WORK SUPERVISOR Height 148.6 cm (4' 10.5) 05/05/2024 10:[address] Body Mass Index 37.68 05/05/2024 10:41 AM SOCIAL WORK SUPERVISOR Plan of Treatment Health Maintenance Due Date Last Done Comments Breast Cancer Screening-Mammogram 1964 Cervical Cancer Screening 1964 Colon Cancer Screening-Colonoscopy 1964 Depression Screening 1964 Hepatitis C Screening 1964 Hepatitis B Screening 1982 Regular Well Visit/Exam 18-64 1982 Covid-19 Vaccine ( season) 03/02/202411/2021 Pneumococcal vaccine <65 (3 of 3 - PCV20 or PCV21) 07/25/2024 07/25/2019, 06/19/2016 Influenza Vaccine (#1) 2025 04/02/2017 DTaP/Tdap/Td Vaccine (2 - Td or Tdap) 06/19/2026 Zoster Vaccine Completed 08/25/2020, 05/04/2020 Insurance [facility] Care Teams Hog Worker Relationship Specialty Start Date End Date Jose Alejandro Boston MD [address] [place], [place] [id number] PCP - General 11/20/16
--- OUTSIDE RECORDS SUMMARY | 2025-01-30 13:05 | XMS_ITS | Referral Summary ---
Author Organization [facility] Address [address] [place] [address] Care Team Providers Care Instrument Maintenance Supervisor Name Role Phone Jose Alejandro Boston MD Primary Care Provider + [phone] Allergies Active Allergy Reactions Criticality Noted Date [...] on file Legal Sex Female 6:25 AM TOOL DIE MAKER Gender Identity Not on file Sexual Orientation Not on file Last Filed Vital Signs Vital Sign Reading Time Taken Comments Blood Pressure 91/60 07/13/2015 12:33 PM TOOL DIE MAKER Pulse 73 07/13/2015 12:33 PM TOOL DIE MAKER Temperature - - Respiratory Rate - - Oxygen Saturation 94% 07/13/2015 12:33 PM TOOL DIE MAKER Inhaled Oxygen Concentration - - Weight 83.2 kg (183 lb 6.4 oz) 05/05/2024 10:41 AM TOOL DIE MAKER Height 148.6 cm (4' 10.5) 05/05/2024 10:[address] Body Mass Index 37.68 05/05/2024 10:41 AM TOOL DIE MAKER Plan of Treatment Not on file Insurance [facility]PPO Address: [address] [address] [facility] H[facility]/PPO Address: [facility] [address] [place] [address] Care Teams Instrument Maintenance Supervisor Relationship Specialty Start Date End Date Jose Alejandro Boston MD [address] [place] [address] PCP - General 11/20/16
[2025-01-30 13:34] LABS: Add Urine Microscopic? NO; Appearance Urine Clear (Clear); Glucose Urine UA Negative (Negative); Leukocyte Esterase Ur Negative (Negative); Nitrate Urine Negative (Negative); Specific Grav Ur 1.015 (1.010-1.020)
== END 2025-01-30 13:01 | disposition home or self-care (01) ==
LOC: CHSLAB 13:02
PROVIDERS: PCP Internal Medicine; Visit Provider Internal Medicine
DX: N39.0 Urinary tract infection, site not specified (principal)
CPT/HCPCS: 81003; 87086

== ENCOUNTER 2025-05-11 13:59 | Outpatient (CLI) | payer OTHER, SELFPAY ==
--- NOTE | ~2025-05-11 | XR_ITS ---
[id number] Indication: Neck Pain Comparison: None Findings: The vertebral heights are intact. No fracture or subluxation. The disc heights are intact. Soft tissues unremarkable Impression: No acute abnormality. Reviewed, dictated and finalized at location P. X MACHINE OPERATOR Impression: No acute abnormality.
--- NOTE | ~2025-05-11 | XR_ITS ---
EXAMINATION: XR shoulder LT min 2V, 05/11/2025 14:15 TANGLED YARN SPOOL STRAIGHTENER HISTORY: L Should Pain COMPARISON: No comparisons available. Findings: No acute fracture or malalignment. Moderate degenerative changes Soft tissues unremarkable. Impression: No acute fracture or malalignment. Reviewed, dictated and finalized at location P. LED YARN SPOOL STRAIGHTENER Impression: No acute fracture or malalignment.
--- OUTSIDE RECORDS SUMMARY | 2025-05-11 14:10 | XMS_ITS | Encounter Summary ---
Author Organization [facility] Address [facility] [place] [address] Care Team Providers Care Electrical Systems Design Engineer Name Role Phone Jose Alejandro Boston MD Primary Care Provider [phone] Encounter Details Date Type Department Care Team (Late st Contact Info) Description 12/07/2018 Abstract SFL CONVERSION [address] [facility] [place] [address] , Generic Conversion, Social History Tobacco Use [...] on filedocumented in this encounter Care Teams Electrical Systems Design Engineer Relationship Specialty Start Date End Date Jose Alejandro Boston MD [address] [place] [address] PCP - General INTERNAL MEDICINE 07/29/19 documented as of this encounter
--- OUTSIDE RECORDS SUMMARY | 2025-05-11 14:10 | XMS_ITS | Clinical Summary ---
Author Organization [facility] Address [address] [place] [address] Care Team Providers Care Cpr Instructor Name Role Phone Jose Alejandro Boston MD Primary Care Provider + [phone] Allergies Active Allergy Reactions Criticality Noted Date [...] on file Legal Sex Female 6:25 AM ENGINEER CHIEF Gender Identity Not on file Sexual Orientation Not on file Last Filed Vital Signs Vital Sign Reading Time Taken Comments Blood Pressure 91/60 07/13/2015 12:33 PM ENGINEER CHIEF Pulse 73 07/13/2015 12:33 PM ENGINEER CHIEF Temperature - - Respiratory Rate - - Oxygen Saturation 94% 07/13/2015 12:33 PM ENGINEER CHIEF Inhaled Oxygen Concentration - - Weight 83.2 kg (183 lb 6.4 oz) 05/05/2024 10:41 AM ENGINEER CHIEF Height 148.6 cm (4' 10.5) 05/05/2024 10:[address] Body Mass Index 37.68 05/05/2024 10:41 AM ENGINEER CHIEF Plan of Treatment Health Maintenance Due Date Last Done Comments Breast Cancer Screening-Mammogram 1964 Cervical Cancer Screening 1964 Colon Cancer Screening-Colonoscopy 1964 Depression Screening 1964 Hepatitis C Screening 1964 Hepatitis B Screening 1982 Regular Well Visit/Exam 18-64 1982 Pneumococcal vaccine <65 (3 of 3 - PCV20 or PCV21) 07/25/2024 07/25/2019, 06/19/2016 Covid-19 Vaccine (2 - 2024- season) 03/02/202511/2021 Influenza Vaccine (#1) 2025 04/02/2017 DTaP/Tdap/Td Vaccine (2 - Td or Tdap) 06/19/2026 Zoster Vaccine Completed 08/25/2020, 05/04/[address] Care Teams Cpr Instructor Relationship Specialty Start Date End Date Jose Alejandro Boston MD [address] [place] [address] PCP - General 11/20/16
--- OUTSIDE RECORDS SUMMARY | 2025-05-11 14:10 | XMS_ITS | Clinical Summary ---
Author Organization [facility] Address [address] [place] [id number] Care Team Providers Care Choke Reamer Name Role Phone Jose Alejandro Boston MD Primary Care Provider [phone] Social History Tobacco Use Types Packs/Day Years [...] Screening with HPV 1994 Mammogram Screening 2004 Pneumococcal Vaccine: 50+ Ye ars (1 of 1 - PCV) 2014 Zoster Vaccines (1 of 2) 2014 COVID-19 Vaccine ( - 2024-2 6 season) 2025 Influenza Adult (#1) 2025 RSV Immunization or 60+ Years (1 - 1-dose 75+ series) 2039 Hepatitis A Vaccines Aged Out No long er eligible based on patient's age to complete this topic Meningococcal B Vaccine Aged Out No l onger eligible based on patient's age to complete this topic Meningococcal Vaccine Aged Out No aurora minerva eligible based on patient's age to complete this topic RSV Immunizations Under 20 Months Aged Out No longer eligible based on patient's age to complete this topic Insurance BLUE [employer] [place] [employer] Care Teams Choke Reamer Relationship Specialty Start Date End Date Jose Alejandro Boston MD [address] [place] [address] PCP - General INTERNAL MEDICINE 07/29/19
[2025-05-11 14:19] LABS: Hematocrit 42.6 % (35.0-49.0); Hemoglobin 14.1 g/dL (12.0-15.0); Mean Corpuscular HGB Conc 33.1 g/dL (32-36); Mean Corpuscular Hemoglobin 29.5 pg (27.0-31.0); Mean Corpuscular Volume 89.1 fL (78.0-102.0); Platelet Count Result 215 K/mm3 (150-420); Red Blood Count 4.78 M/mm3 (4.20-5.40); White Blood Count 5.0 K/mm3 (4.8-10.8)
[2025-05-11 15:44] LABS: Free T3 4.36 pg/mL (2.18-3.98)
[2025-05-11 15:46] LABS: Free T4 Free Thyroxine 1.26 ng/dL (0.78-2.19)
[2025-05-11 15:59] LABS: Thyroid Stimulating Hormone 2.290 uIU/mL (0.465-4.680)
[2025-05-11 16:25] LABS: Vitamin B12 327.0 pg/mL (239-931)
== END 2025-05-11 14:00 | disposition home or self-care (01) ==
LOC: CHSLAB 14:01
PROVIDERS: PCP Internal Medicine; Visit Provider Internal Medicine
DX: E55.9 Vitamin D deficiency, unspecified (principal); D70.9 Neutropenia, unspecified; E04.1 Nontoxic single thyroid nodule
CPT/HCPCS: 36415; 72040; 73030; 82306; 82607; 84439; 84443; 84481; 85027

== ENCOUNTER 2025-05-18 12:32 | Outpatient (CLI) | payer OTHER, SELFPAY | END 2025-05-18 12:33 | disposition home or self-care (01) | LOC: CHSAUDIO 12:34 | PROVIDERS: PCP Internal Medicine; Visit Provider Internal Medicine | DX: H91.93 Unspecified hearing loss, bilateral (principal) | CPT/HCPCS: 92557; 92567 ==

== ENCOUNTER 2025-06-06 10:52 | Outpatient (CLI) | payer OTHER, SELFPAY ==
--- NOTE | ~2025-06-06 | MR_ITS ---
EXAMINATION: MR cervical spine wo con DATE: 06/06/2025 13:22 INDICATION: Chronic neck pain. Left shoulder pain. TECHNIQUE: Magnetic resonance imaging (MRI) of the cervical spine was performed without intravenous contrast. Sequences included sagittal T2-weighted FSE, sagittal T2-weighted FS FSE, sagittal T1-weighted FSE, axial MERGE, and axial T2-weighted FSE. COMPARISON: Cervical spine radiographs 05/11/2025 FINDINGS: Alignment is normal. Vertebral body heights are normal. Intervertebral disc heights are normal. The spinal cord signal intensity is normal. The following disc levels are specifically discussed: C2-C3: The disc does not extend beyond the endplate margin. There is no uncovertebral joint osteoarthritis. There is mild bilateral facet joint osteoarthritis. There is no neural foraminal stenosis. There is no central canal stenosis. C3-C4: The disc does not extend beyond the endplate margin. There is mild bilateral uncovertebral joint osteoarthritis. There is moderate bilateral facet joint osteoarthritis. There is mild right neural foraminal stenosis. There is no central canal stenosis. C4-C5: There is a central extrusion. There is mild right and moderate left uncovertebral joint osteoarthritis. There is severe right facet joint osteoarthritis. There is ankylosis of left facet joint with severe hypertrophy. There is mild right and severe left neural foraminal stenosis. There is mild c entral canal stenosis. C5-C6: There is a central protrusion. There is mild bilateral uncovertebral joint osteoarthritis. There is severe bilateral facet joint osteoarthritis. There is mild bilateral neural foraminal stenosis. There is mild central canal stenosis. C6-C7: There is a central protrusion. There is no uncovertebral joint osteoarthritis. There is severe right and moderate left facet joint osteoarthritis. There is mild left neural foraminal stenosis. There is mild central canal stenosis. C7-T1: The disc does not extend beyond the endplate margin. There is no uncovertebral joint osteoarthritis. There is severe bilateral facet joint osteoarthritis. There is mild bilateral neural foraminal stenosis. There is no central canal stenosis. IMPRESSION: 1. Moderate cervical spondylosis. Reviewed, dictated and finalized at location E. TRUCTION SALES REPRESENTATIVE
--- NOTE | ~2025-06-06 | MR_ITS ---
EXAMINATION: MR shoulder LT wo con DATE: 06/06/2025 13:22 INDICATION: Left shoulder pain TECHNIQUE: Magnetic resonance imaging (MRI) of the left shoulder was performed without intravenous contrast. Sequences included axial PD-weighted FS FSE, coronal oblique PD-weighted FS FSE, coronal oblique T2-weighted FS FSE, sagittal PD-weighted FS FSE, and sagittal T1-weighted SE. COMPARISON: None. FINDINGS: Evaluation mildly limited by mild motion artifact blurring to some degree on all sequences. Coracoacromial arch: The acromion undersurface is curved in morphology (type II). The coracoacromial ligament is normal. Mild acromioclavicular osteoarthritis. Rotator cuff: Mild supraspinatus and anterior infraspinatus tendinopathy without tear. The teres minor tendon is normal. The subscapularis tendon is normal. Normal rotator cuff muscle bulk and signal. Biceps tendon, glenoid labrum and glenohumeral cartilage: Long head of the biceps tendon is normal. There is partial thickness chondral ulceration along the inferior glenoid with underlying large degenerative subchondral cyst. Additional partial-thickness cartilage loss without degenerative subchondral changes along the inferomedial aspect of the humeral head. Glenoid labrum is normal. Fluid: Very small glenohumeral joint effusion with mild synovitis at the axillary recess. No loose osteochondral bodies. No abnormal increased fluid signal in the subacromial/subdeltoid bursa to suggest bursitis. Bones: Aside from additional mild subarticular edema-like signal change at the inferior glenoid there is normal marrow signal throughout. No fracture or pathologic marrow replacing process. IMPRESSION: 1. Moderate glenohumeral osteoarthritis with high grade chondromalacia with large underlying degenerative subchondral cyst at the inferior glenoid. 2. Mild supraspinatus and infraspinatus tendinopathy without discrete tear. Reviewed, dictated and finalized at location A. FILE OPERATOR IMPRESSION: 1. Moderate glenohumeral osteoarthritis with high grade chondromalacia with lar ge underlying degenerative subchondral cyst at the inferior glenoid. 2. Mild supraspinatus and infraspinatus tendinopathy without discrete tear.
--- OUTSIDE RECORDS SUMMARY | 2025-06-06 10:58 | XMS_ITS | Clinical Summary ---
Author Organization [facility] Address [address] [place] [address] Care Team Providers Care Building Construction Estimator Name Role Phone Jose Alejandro Boston MD Primary Care Provider [phone] Allergies Active Allergy Reactions Criticality Noted Date [...] on file Legal Sex Female 6:25 AM GEOPHYSICAL OBSERVER Gender Identity Not on file Sexual Orientation Not on file Last Filed Vital Signs Vital Sign Reading Time Taken Comments Blood Pressure 91/60 07/13/2015 12:33 PM GEOPHYSICAL OBSERVER Pulse 73 07/13/2015 12:33 PM GEOPHYSICAL OBSERVER Temperature - - Respiratory Rate - - Oxygen Saturation 94% 07/13/2015 12:33 PM GEOPHYSICAL OBSERVER Inhaled Oxygen Concentration - - Weight 83.2 kg (183 lb 6.4 oz) 05/05/2024 10:41 AM GEOPHYSICAL OBSERVER Height 148.6 cm (4' 10.5) 05/05/2024 10:[address] Body Mass Index 37.68 05/05/2024 10:41 AM GEOPHYSICAL OBSERVER Plan of Treatment Health Maintenance Due Date [...] 06/19/2026 Zoster Vaccine Completed 08/25/2020, 05/04/[address] Care Teams Building Construction Estimator Relationship Specialty Start Date End Date Jose Alejandro Boston MD [address] [place] [address] PCP - General 11/20/16
--- OUTSIDE RECORDS SUMMARY | 2025-06-06 10:58 | XMS_ITS | Encounter Summary ---
Author Organization [facility] Address [facility] [place] [address] Care Team Providers Care Bolt Machine Operator Name Role Phone Jose Alejandro Boston MD Primary Care Provider [phone] Encounter Details Date Type Department Care Team (Late st Contact Info) Description 12/07/2018 Abstract [facility]FL CONVERSION [address] [facility] [address] , Generic Conversion, Social History Tobacco Use [...] on filedocumented in this encounter Care Teams Bolt Machine Operator Relationship Specialty Start Date End Date Jose Alejandro Boston MD [address] [place] [address] PCP - General INTERNAL MEDICINE 07/29/19 documented as of this encounter
--- OUTSIDE RECORDS SUMMARY | 2025-06-06 10:58 | XMS_ITS | Clinical Summary ---
Author Organization [facility] Address [address] [place] [address] Care Team Providers Care Brisket Puller Name Role Phone Jose Alejandro Boston MD Primary Care Provider [phone] Social History Tobacco Use Types Packs/Day Years [...] to complete this topic Insurance BLUE SHIELD [place] [employer] BL[employer] Care Teams Brisket Puller Relationship Specialty Start Date End Date Jose Alejandro Boston MD [address] [place] [address] PCP - General INTERNAL MEDICINE 07/29/19
== END 2025-06-06 10:53 | disposition home or self-care (01) ==
LOC: CHSIMG 10:56
PROVIDERS: PCP Internal Medicine; Visit Provider Internal Medicine
DX: M54.12 Radiculopathy, cervical region (principal); M25.512 Pain in left shoulder; M19.012 Primary osteoarthritis, left shoulder; M94.212 Chondromalacia, left shoulder; M65.812 Other synovitis and tenosynovitis, left shoulder; M43.02 Spondylolysis, cervical region
CPT/HCPCS: 72141; 73221